=== PATIENT | male | born 1945 | race Caucasian/White ===

== ENCOUNTER 2023-03-02 16:35 | Inpatient (IN) | payer MEDICARE ==
[2023-03-02] MEDS ORDERED: HEPARIN SODIUM 1,000 UN/ML (10ML VL) IV PRN (16:58)
--- NOTE | 2023-03-02 17:02 | ED ---
General Adult HPI - General Chief complaint: Arrhythmia/Palpitations Stated complaint: Afib, RVR new onset Time Seen by Provider: 03/02/23 16:39 Source: patient Mode of arrival: EMS Limitations: no limitations - History of Present Illness Initial comments: Dictation was produced using [employer] dictation software. please excuse any grammatical, word or spelling errors. Chief Complaint: 78-year-old male presents to the emergency department for A. 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 fib. He presented to his primary. initially were he was found have a tachycardic heart rate. EKG was sent to the ER for suspicion of SVT. He was at the emergency department diagnosed with A. fib RVR he was given adenosine started Cardizem and heparin. Patient states he initially presented to his primary care doctor for worsening weakness and weight loss. Patient denies any chest pain or shortness of breath or lower extremities swelling or pain. The ROS documented in this emergency department record has been reviewed and confirmed by me. Those systems with pertinent positive or negative responses have been documented in the HPI. All other systems are other negative and/or noncontributory. - Related Data Allergies Allergy/AdvReac Type Severity Reaction Status Date / Time aspirin Allergy Rash/Hives Verified 03/02/23 16:51 ibuprofen Allergy Rash/Hives Verified 03/02/23 16:51 Review of Systems ROS Statement: Those systems with pertinent positive or pertinent negative responses have been documented in the HPI. ROS Other: All systems not noted in ROS Statement are negative. Past Medical History Additional Past Medical History / Comment(s): Atrail deptal defect, atherosclerosis, CAD, GERD, Gout, PVD, Past Surgical History: Appendectomy, Heart Catheterization With Stent, Hernia Repair, Orthopedic Surgery Additional Past Surgical History / Comment(s): AAA repair, back surgery, knee replacement, Past Psychological History: No Psychological Hx Reported Smoking Status: Former smoker Past Alcohol Use History: Occasional Past Drug Use History: None Reported General Exam - General Exam Comments Initial Comments: PHYSICAL EXAM: General Impression: Alert and oriented x3, not in acute distress HEENT: Normocephalic atraumatic, extra-ocular movements intact, pupils equal and reactive to light bilaterally, mucous membranes moist. 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 Overall this EKG is nonspecific Medical Decision Making - Medical Decision Making Was pt. sent in by a medical professional or institution (, PA, SURGEON PARTNER, urgent care, hospital, or long-term...) When possible be specific @ -From outside hospital emergency room Did you speak to anyone other than the patient for history (EMS, parent, family, police, friend...)? What history was obtained from this source @ -No Did you review nursing and triage notes (agree or disagree)? Why? @ -I reviewed and agree with nursing and triage notes Were old charts reviewed (outside hosp., previous admission, EMS record, old EKG, old radiological studies, urgent care reports/EKG's, long-term records)? Report findings @ -ER records from outside hospital emergency room reviewed Differential Diagnosis (chest pain, altered mental status, abdominal pain women, abdominal pain men, vaginal bleeding, musculoskeletal, weakness, fever, dyspnea, syncope, headache, dizziness, GI bleed, back pain, seizure, CVA, palpatations, mental health)? @ - Differential Palpitations: Ventricular arrhythmias, atrial arrhythmias, myocardial infarction, anemia, thyrotoxicosis, electrolyte imbalance, hypokalemia, pulmonary embolism, pulmonary disease, drugs, alcohol, anxiety, stress.... This is not meant to be an all-inclusive list. EKG interpreted by me (3pts min.). @ -see above X-rays interpreted by me (1pt min.). @ -None done CT interpreted by me (1pt min.). @ -None done U/S interpreted by me (1pt. min.). @ -None done What testing was considered but not performed or refused? (CT, X-rays, U/S, labs)? Why? @ -None What meds were considered but not given or refused? Why? @ -None Did you discuss the management of the patient with other professionals (professionals i.e. , PA, SURGEON PARTNER, lab, RT, psych nurse, older adult social work specialist, sports marketing specialist, teacher, medical officer psychiatry, oil field caser)? Give summary @ -Case discussed with hospitalist for admission Was smoking cessation discussed for >3mins.? @ -No Was critical care preformed (if so, how long)? @ -No Were there social determinants of health that impacted care today? How? (Homelessness, low income, unemployed, alcoholism, drug addiction, transportation, low edu. Level, literacy, decrease access to med. care, detention, rehab)? @ -No Was there de-escalation of care discussed even if they declined (Discuss DNR or withdrawal of care, Hospice)? DNR status @ -No What co-morbidities impacted this encounter? (DM, HTN, Smoking, COPD, CAD, Cancer, CVA, ARF, Chemo, Hep., AIDS, mental health diagnosis, sleep apnea, morbid obesity)? @ -None Was patient admitted / discharged? Hospital course, mention meds given and route, prescriptions, significant lab abnormalities, going to OR and other pertinent info. @ -No transferred from outside hospital emergency department for new onset A. fib. Patient is transferred with heparin and Cardizem. Vital signs upon arrival shows heart rate of 1:15, rest of vital signs within acceptable limits. Patient is well-appearing at bedside in no acute distress. Patient will be admitted to [facility] with consultation to cardiology. Undiagnosed new problem with uncertain prognosis? @ -No Drug Therapy requiring intensive monitoring for toxicity (Heparin, Nitro, Insulin, Cardizem)? @ -No Were any procedures done? @ -No Diagnosis/symptom? Acute, or Chronic, or Acute on Chronic? Uncomplicated (without systemic symptoms) or Complicated (systemic symptoms)? @ -New-onset A. fib Side effects of treatment? @ -No Exacerbation, Progression, or Severe Exacerbation? @ -No Poses a threat to life or bodily function? How? (Chest pain, USA, CA, pneumonia, PE, COPD, DKA, ARF, appy, cholecystitis, CVA, Diverticulitis, Homicidal, Suicidal, threat to staff... and all critical care pts) @ -yes Disposition Clinical Impression: New onset a-fib Disposition: ADMITTED IP TO THIS HOSP Condition: Fair Referrals: Jose G Courtney MD [Primary Care Provider] - 1-2 days Decision Time: 17:58
[2023-03-02] MEDS: HEPARIN SOD,PORK IN 0.45% NACL 25,000 UNIT in 0.45% NACL 1 250ML.BAG IV SCH (17:10)
[2023-03-02] MEDS: DILTIAZEM 125 MG in SODIUM CHLORIDE 0.9% 100 ML IV SCH (17:11)
[2023-03-02] MEDS ORDERED: NALOXONE 0.4 MG/ML 1 ML VIAL IV PRN (17:54)
[2023-03-02] MEDS: SODIUM CHLORIDE 0.9% 1,000 ML IV SCH (18:48)
[2023-03-03] MEDS ORDERED: ATORVASTATIN 80 MG TAB PO STA (05:08)
--- NOTE | 2023-03-03 05:09 | P.HPIM ---
History of Present Illness H&P Date: 03/02/23 Patient is a 78-year-old male with a PMH of BPH, CAD, GERD, hyperlipidemia, peripheral vascular disease, AAA status post repair, and ASD who was sent into the emergency room from [facility] where the patient initially presented with complaints of shortness of breath and lightheadedness. The patient reports that he had not been feeling well for several weeks and had little energy to perform his ADLs. He reports exertional dyspnea without orthopnea or PND. He denies experiencing chest discomfort, nausea, vomiting, diaphoresis, lower chronic swelling, lower extremity pain. The patient underwent an extensive evaluation at the [facility] which was all reviewed. EKG revealed A. fib with RVR at 129 bpm and subsequently repeat EKG also showed A. fib with RVR at 118 bpm. , Chest x-ray was unremarkable. The patient's laboratory evaluation was remarkable for troponin I 0.340, hemoglobin 10.9, platelet, and 65, sodium 141, potassium 3.1, chloride 106, BUN 24, creatinine 0.90, calcium 8.7, AST 52, ALT 28, total bilirubin 1.20, and magnesium 1.9. Repeat laboratory evaluation at our facility revealed a troponin of 0.371. ED documentation reviewed and case discussed with ED provider. Review of systems: Pertinent positives and negatives as discussed in HPI, a complete review of systems was performed and all other systems are negative. Physical examination: Vital signs reviewed General: non toxic, no distress, appears at stated age, normal weight Derm: no unusual rashes/lesions, warm Head: atraumatic, normocephalic, symmetric Eyes: EOMI, no lid lag, anicteric sclera, pupils equal round reactive to light ENT: Nose and ears atraumatic Neck: No cervical lymphadenopathy, trachea midline, supple Mouth: no lip lesion, mucus membranes moist Cardiovascular: S1S2 reg, no murmur, positive dorsalis pedis pulse bilateral, no edema Lungs: CTA bilateral, no rhonchi, no rales, no accessory muscle use Abdominal: soft, nontender to palpation, no guarding Ext: muscle strength 5 out of 5 in all 4 extremities grossly, no gross muscle atrophy, no contractures, Neuro: CN II-XI grossly intact, no gross focal neuro deficits Psych: Alert, oriented, appropriate affect Assessment: A. fib with RVR Non-ST elevation [place] Hypokalemia Chronic conditions: Hyperlipidemia, PVD, AAA, ASD, GERD Imaging: The patient underwent an extensive evaluation at the [facility] which was all reviewed. EKG revealed A. fib with RVR at 129 bpm and subsequently repeat EKG also showed A. fib with RVR at 118 bpm. , Chest x-ray was unremarkable Data Review: The patient's laboratory evaluation was remarkable for troponin I 0.340, hemoglobin 10.9, platelet, and 65, sodium 141, potassium 3.1, chloride 106, BUN 24, creatinine 0.90, calcium 8.7, AST 52, ALT 28, total bilirubin 1.20, and magnesium 1.9. Repeat laboratory evaluation at our facility revealed a troponin of 0.371. Plan: Continue heparin infusion with monitoring APTT levels Continue Cardizem infusion Cardiac monitoring Trend troponin Cardiology consulted Obtain Echocardiogram Replace potassium and monitor Resume home medications PT consult DVT propaylaxis: Heparin infusion The patient is admitted with an anticipated greater than 2 midnight stay for evaluation of afib CODE STATUS: Full Code Discussed with: Patient Anticipated discharge place: Home Past Medical History Additional Past Medical History / Comment(s): Atrail septal defect, atherosclerosis, CAD, GERD, Gout, PVD, History of Any Multi-Drug Resistant Organisms: None Reported Past Surgical History: Appendectomy, Heart Catheterization With Stent, Hernia Repair, Orthopedic Surgery Additional Past Surgical History / Comment(s): AAA repair, back surgery,L knee replacement, Date of Last Stent Placement:: n/a Past Psychological History: No Psychological Hx Reported Smoking Status: Former smoker Past Alcohol Use History: Occasional Past Drug Use History: None Reported Medications and Allergies Home Medications Medication Instructions Recorded Confirmed Type Clopidogrel [Plavix] 75 mg PO HS 03/02/23 03/02/23 History Dutasteride [Avodart] 0.5 mg PO HS 03/02/23 03/02/23 History Tamsulosin HCl [Flomax] 0.4 mg PO BID 03/02/23 03/02/23 History allopurinoL [Zyloprim] 300 mg PO HS 03/02/23 03/02/23 History Allergies Allergy/AdvReac Type Severity Reaction Status Date / Time aspirin Allergy Rash/Hives Verified 03/02/23 18:02 ibuprofen Allergy Rash/Hives Verified 03/02/23 18:02 Physical Exam Vitals: Vital Signs Temp Pulse Pulse Resp BP BP Pulse Ox 03/02/23 20:59 97.6 F 100 18 141/88 94 L 03/02/23 19:54 97.6 F 100 18 141/88 94 L 03/02/23 18:47 98 18 138/99 96 03/02/23 17:28 113 H 18 142/120 96 03/02/23 16:54 135 H 03/02/23 16:42 97.9 F 115 H 18 131/91 96 Intake and Output 03/02/23 03/02/23 03/03/23 14:59 22:59 06:59 Other: Voiding Method Toilet Weight 77.111 kg Results Labs: Abnormal Lab Results - Last 24 Hours (Table) 03/02/23 Range/Units 17:19 Troponin I 0.371 H* (0.000-0.034) ng/mL Thrombosis Risk Factor Assmnt - Choose All That Apply Any of the Below Risk Factors Present?: No Other Risk Factors: Yes Each Risk Factor Represents 3 Points: Age 75 years or older Other congenital or acquired thrombophilia - If yes, enter type in comment: No Thrombosis Risk Factor Assessment Total Risk Factor Score: 3 Thrombosis Risk Factor Assessment Level: Moderate Risk
[2023-03-03 05:56] LABS: Anisocytosis Slight; HCT 35.8 % (39.0-53.0); HGB 11.2 gm/dL (13.0-17.5); Hypochromasia Marked; MCH 28.4 pg (25.0-35.0); MCHC 31.2 g/dL (31.0-37.0); Mean Platelet Volume 10.4; Platelet Count 150 k/uL (150-450); RBC 3.93 m/uL (4.30-5.90); RDW 17.4 % (11.5-15.5)
[2023-03-03 06:09] LABS: African American GFR (CKD) >90 (>60 ml/min/1.73 sqM); Anion Gap 8 mmol/L; Blood Urea Nitrogen 24 mg/dL (9-20); Calcium 8.6 mg/dL (8.4-10.2); Carbon Dioxide 23 mmol/L (22-30); Chloride 108 mmol/L (98-107); Glucose 100 mg/dL (74-99); Non-African American GFR(CKD) 80 (>60 ml/min/1.73 sqM); Potassium 3.5 mmol/L (3.5-5.1); Sodium 139 mmol/L (137-145)
[2023-03-03] MEDS: SODIUM CHLORIDE 0.9% 1,000 ML IV SCH (10:18)
[2023-03-03] MEDS: METOPROLOL TARTRATE 50 MG TAB PO SCH ×2 (10:18→20:20)
[2023-03-03] MEDS ORDERED: HEPARIN SODIUM 1,000 UN/ML (10ML VL) IV PRN (10:25)
--- NOTE | 2023-03-03 11:16 | P.PN ---
Subjective Progress Note Date: 03/03/23 Hospital Course: 78-year-old male with a PMH of BPH, CAD, GERD, hyperlipidemia, peripheral vascular disease, AAA status post repair, and ASD who was sent into the emergency room from [facility] where the patient initially presented with complaints of shortness of breath and lightheadedness. The patient underwent an extensive evaluation at the [facility] which was all reviewed. EKG revealed A. fib with RVR at 129 bpm and subsequently repeat EKG also showed A. fib with RVR at 118 bpm. , Chest x-ray was unremarkable. The patient's laboratory evaluation was remarkable for troponin I 0.340, hemoglobin 10.9, platelet, and 65, sodium 141, potassium 3.1, chloride 106, BUN 24, creatinine 0.90, calcium 8.7, AST 52, ALT 28, total bilirubin 1.20, and magnesium 1.9. Repeat laboratory evaluation at our facility revealed a troponin of 0.371. Patient admitted for atrial fibrillation with RVR and non-ST elevation [place]. Cardiology consulted. Subjective: Patient seen and examined at bedside. No acute events overnight. Denies any further chest pain or palpitations. Pertinent positives and negatives as discussed above, a complete review of systems was performed and all other systems are negative. Vitals Signs Reviewed. General: nontoxic, no distress, appears at stated age Derm: warm, dry Head: atraumatic, normocephalic, symmetric Eyes: EOMI, no lid lag, anicteric sclera Mouth: no lip lesion, mucus membranes moist Cardiovascular: S1S2 irregular tachycardic, no murmur Lungs: CTA bilateral, no rhonchi, no rales , no accessory muscle use Abdominal: soft, nontender to palpation, no guarding, no appreciable organomegaly Ext: no gross muscle atrophy, no edema, no contractures Neuro: CN II-XI grossly intact, no focal neuro deficits Psych: Alert, oriented, appropriate affect Data Reviewed Today: Pertinent Labs: Hemoglobin 11.2, APTT 38.5, creatinine 0.9, potassium 3.5, troponin 0.366, TSH 1.3, respiratory viral panel negative. Imaging: No new imaging Assessment and Plan: Patient needs close monitoring, prognosis is guarded. Active: Atrial fibrillation with RVR Non-ST elevation [place], likely type II -Patient is currently on Cardizem drip, titrate off -Also on heparin drip, monitor for bleeding, monitor APTT, and a CBC -Also started on metoprolol 50 twice a day per cardiology -Continue Plavix 75 mg, also started on atorvastatin 80 mg -Repeat BMP and magnesium tomorrow -Continue telemetry -Echocardiogram pending Debility - PT consulted Resolved: Hypokalemia Chronic: Dyslipidemia CAD BPH examined. PAD AAA status post repair Gout DVT ppx: Heparin drip Code status: Full code Anticipated discharge place: Pending clinical course Anticipated discharge time: Pending clinical course Objective - Vital Signs Vital signs: Vital Signs Temp 97.8 F 03/03/23 08:00 Pulse 115 H 03/03/23 08:00 Resp 18 03/03/23 08:00 BP 171/90 03/03/23 08:00 Pulse Ox 95 03/03/23 08:00 FiO2 Intake & Output 03/02/23 03/03/23 03/03/23 18:59 06:59 18:59 Intake Total 85.59 89.837 Output Total 550 Balance -464.41 89.837 Weight 77.111 kg 77.111 kg Intake: Intake, IV Titration 85.59 89.837 Amount Heparin Sod,Pork in 0.45% 85.59 89.837 NaCl 25,000 unit In 0.45 % NaCl 1 250ml.bag @ 12 UNITS/KG/HR 9.253 mls/hr IV .Q24H [facility] Rx#: [id number] Output: Urine 550 Other: Voiding Method Toilet Toilet - Labs CBC & Chem 7: 03/03/23 05:35 03/03/23 05:35 Labs: Abnormal Lab Results - Last 24 Hours (Table) 03/02/23 03/02/23 03/03/23 Range/Units 17:19 23:02 05:35 RBC (4.30-5.90) m/uL Hgb (13.0-17.5) gm/dL Hct (39.0-53.0) % RDW (11.5-15.5) % APTT 33.5 H 38.5 H (22.0-30.0) sec Chloride (98-107) mmol/L BUN (9-20) mg/dL Glucose (74-99) mg/dL Troponin I 0.371 H* (0.000-0.034) ng/mL 03/03/23 03/03/23 03/03/23 Range/Units 05:35 05:35 05:35 RBC 3.93 L (4.30-5.90) m/uL Hgb 11.2 L (13.0-17.5) gm/dL Hct 35.8 L (39.0-53.0) % RDW 17.4 H (11.5-15.5) % APTT (22.0-30.0) sec Chloride 108 H (98-107) mmol/L BUN 24 H (9-20) mg/dL Glucose 100 H (74-99) mg/dL Troponin I 0.366 H* (0.000-0.034) ng/mL
--- NOTE | 2023-03-03 12:11 | CA ---
Transthoracic Echo Report Name: Calos Ramirez Age: 78 Gender: M : 1945 Exam Date: 03/03/2023 09:21 Exam Location: [place] [facility] Ht (in): 70 Wt (lb): 170 Ordering Physician: Cipriano Galdamez MD Attending/Referring Phys: Wildlife Enforcement Major Misha Ashraf Procedure CPT: Indications: afib Cardiac Hx: Technical Quality: Fair Contrast 1: Total Dose (mL): Contrast 2: Total Dose (mL): MEASUREMENTS (Male / Female) Normal Values 2D ECHO LV Diastolic Diameter PLAX 4.6 cm 4.2 - 5.9 / 3.9 - 5.3 cm LV Systolic Diameter PLAX 3.6 cm IVS Diastolic Thickness 1.9 cm 0.6 - 1.0 / 0.6 - 0.9 cm LVPW Diastolic Thickness 1.5 cm 0.6 - 1.0 / 0.6 - 0.9 cm LV Relative Wall Thickness 0.8 RV Internal Dim ED PLAX 3.4 cm LVOT Diameter 2.0 cm Aortic Root Diameter 3.3 cm LA Systolic Diameter LX 3.9 cm 3.0 - 4.0 / 2.7 - 3.8 cm LV Diastolic Volume MOD BP 98.8 cm??? 67 - 155 / 56 - 104 cm??? LV Systolic Volume MOD BP 59.1 cm??? - 58 / 19 - 49 cm??? LV Ejection Fraction MOD BP 40.1 % >= 55 % LV Cardiac Index MOD BP 1195.1 cm???/min???m??? LV Diastolic Volume MOD 4C 87.5 cm??? LV Systolic Volume MOD 4C 47.5 cm??? LV Ejection Fraction MOD 4C 45.7 % LV Cardiac Index MOD 4C 1203.4 cm???/min???m??? LV Diastolic Length 4C 8.1 cm LV Systolic Length 4C 7.5 cm LV Diastolic Volume MOD 2C 109.9 cm??? LV Systolic Volume MOD 2C 72.0 cm??? LV Ejection Fraction MOD 2C 34.5 % LV Cardiac Index MOD 2C 1141.7 cm???/min???m??? LV Diastolic Length 2C 8.2 cm LV Systolic Length 2C 7.7 cm LA Volume 90.0 cm??? 18 - 58 / 22 - 52 cm??? LA Volume Index 46.0 cm???/m??? 16 - 28 cm???/m??? Ascending Aorta Diameter 3.9 cm DOPPLER AV Peak Velocity 106.8 cm/s AV Peak Gradient 4.6 mmHg AV Mean Velocity 46.8 cm/s AV Mean Gradient 1.0 mmHg AV Velocity Time Integral 11.2 cm MV Peak Velocity 145.8 cm/s MV Peak Gradient 8.5 mmHg MV Mean Velocity 60.5 cm/s MV Mean Gradient 2.1 mmHg MV Velocity Time Integral 23.9 cm MR Peak Velocity 499.0 cm/s MR Peak Gradient 99.6 mmHg MV E' Velocity 4.0 cm/s TR Peak Velocity 273.5 cm/s TR Peak Gradient 29.9 mmHg Right Ventricular Systolic Press 34.9 mmHg PV Peak Velocity 79.2 cm/s PV Peak Gradient 2.5 mmHg FINDINGS Left Ventricle Severely increased septal wall thickness. Mildly increased left ventricular systolic volume. Moderately decreased left ventricular ejection fraction. Left ventricular ejection fraction is estimated at 40 %. Right Ventricle Normal right ventricular size. RVSP= 35mmHg. Right Atrium Moderate right atrial dilatation. RA area = 28cm2 Left Atrium Severely increased left atrial volume. Mildly increased left atrial area. Mitral Valve Structurally normal mitral valve. Moderate eccentric MR. Aortic Valve Trileaflet aortic valve. Mild to moderate calcification/sclerosis. Trace AI. Tricuspid Valve Structurally normal tricuspid valve. Moderate TR. Pulmonic Valve Structurally normal pulmonic valve. Mild to moderate PI. Pericardium Small global pericardial effusion. Aorta Normal size aortic root. Ascending AO godfrey. =3.9cm CONCLUSIONS Normal LV size with a mild global decrease in contractility estimated ejection fraction of about 40%. Enlarged atria. Mitral annular calcification with moderate mitral regurgitation. Aortic valve sclerosis with mild aortic insufficiency. Small pericardial effusion globally Previewed by: Dr. Yuki Nieves MD (Electronically Signed) Final Date: 03 March 2023 12:10
--- NOTE | 2023-03-03 13:12 | P.CRDCN ---
History of Present Illness Consult date: 03/03/23 Consult reason: atrial fibrillation (new onset) History of present illness: History of present illness: This is an 78-year-old male with past medical history of atrial septal defect, peripheral vascular disease status post AAA repair, coronary artery disease with stent, tobacco use and dependence. Patient states he quit smoking 1 month ago and has no alcohol intake. We have been asked to evaluate the patient for new onset atrial fibrillation. Patient states that he initially went to his PCP for weakness and weight loss he was then sent to the local hospital for evaluation and transfer to [facility] for A. fib new onset. Patient is status post adenosine and subsequently Cardizem drip and heparin drip. Patient is seen today in the emergency center waiting for a bed on the cardiac stepdown unit. Patient also states that he has shortness of breath with minimal activity and a chronic cough. He has lower extremity edema. No chest pain. EKG atrial fibrillation with PVCs Echocardiogram reveals EF of 40%. Moderate mitral regurgitation. Aortic valve sclerosis with mild aortic insufficiency. WBC 6, hemoglobin 11.3, platelet count 150. Sodium 139, potassium 3.5, BUN 24 and creatinine 0.9. Troponin 0.371 and 0.366. Home cardiac medications: Plavix 75 mg daily, Avodart 0.5 mg at bedtime. Review Of Systems: At the time of my exam: CONSTITUTIONAL: Denies fever or chills. CARDIOVASCULAR: Denies chest pain, Denies shortness of breath, no orthopnea, PND or palpitations. RESPIRATORY: + cough. GASTROINTESTINAL: Denies abdominal pain, diarrhea, constipation, nausea or vomiting. MUSCULOSKELETAL: Denies myalgias. NEUROLOGIC: Denies numbness, tingling or weakness. ENDOCRINE: Denies fatigue, weight change, polydipsia or polyurina. GENITOURINARY: Denies burning, hematuria or urgency with micturation. HEMATOLOGIC: Denies history of anemia or bleeding. Physical examination: Gen: This is an 78-year-old male in no acute distress VS: reviewed HEENT: Head is atraumatic, normocephalic. Pupils equal, round. Sclerae is anicteric. NECK: Supple. + JVD. LUNGS: Clear to auscultation. No wheezes or rhonchi. No intercostal retractio ns. HEART: Irregular rate and rhythm. Systolic murmur. ABDOMEN: Soft No tenderness. EXTREMITIES: 1+ pedal edema. No calf tenderness. NEUROLOGICAL: Patient is awake, alert and oriented x3. Assessment: New onset paroxysmal atrial fibrillation with RVR Weakness and weight loss Hypertension Elevated troponin, acute coronary syndrome ruled out Tobacco use and dependence quit smoking 1 month ago Plan: Decrease Cardizem drip to 2.5 mg/h Start patient on Lopressor 50 mg twice daily Continue heparin drip for 24 hours Further recommendations to follow based upon clinical course Thank you kindly for this consultation. Nurse practitioner note has been reviewed, I agree with documented findings and plan of care. Patient was seen and examined. Past Medical History Additional Past Medical History / Comment(s): Atrail septal defect, atherosclerosis, CAD, GERD, Gout, PVD, History of Any Multi-Drug Resistant Organisms: None Reported Past Surgical History: Appendectomy, Heart Catheterization With Stent, Hernia Repair, Orthopedic Surgery Additional Past Surgical History / Comment(s): AAA repair, back surgery,L knee replacement, Date of Last Stent Placement:: n/a Past Psychological History: No Psychological Hx Reported Smoking Status: Former smoker Past Alcohol Use History: Occasional Past Drug Use History: None Reported Medications and Allergies Home Medications Medication Instructions Recorded Confirmed Type Clopidogrel [Plavix] 75 mg PO HS 03/02/23 03/02/23 History Dutasteride [Avodart] 0.5 mg PO HS 03/02/23 03/02/23 History Tamsulosin HCl [Flomax] 0.4 mg PO BID 03/02/23 03/02/23 History allopurinoL [Zyloprim] 300 mg PO HS 03/02/23 03/02/23 History Allergies Allergy/AdvReac Type Severity Reaction Status Date / Time aspirin Allergy Rash/Hives Verified 03/02/23 18:02 ibuprofen Allergy Rash/Hives Verified 03/02/23 18:02 Physical Exam Vitals: Vital Signs Temp Pulse Pulse Resp BP BP Pulse Ox 03/03/23 04:00 96.7 F L 98 20 149/90 100 03/03/23 00:00 97.8 F 65 18 108/65 95 03/02/23 20:59 97.6 F 100 18 141/88 94 L 03/02/23 19:54 97.6 F 100 18 141/88 94 L 03/02/23 18:47 98 18 138/99 96 03/02/23 17:28 113 H 18 142/120 96 03/02/23 16:54 135 H 03/02/23 16:42 97.9 F 115 H 18 131/91 96 Intake and Output 03/02/23 03/03/23 03/03/23 22:59 06:59 14:59 Intake Total 85.59 Output Total 550 Balance -464.41 Intake: Intake, IV Titration 85.59 Amount Heparin Sod,Pork in 0.45% 85.59 NaCl 25,000 unit In 0.45 % NaCl 1 250ml.bag @ 12 UNITS/KG/HR 9.253 mls/hr IV .Q24H [facility] Rx#: [id number] Output: Urine 550 Other: Voiding Method Toilet Toilet Weight 77.111 kg Results 03/03/23 05:35 03/03/23 05:35 Cardiac Enzymes 03/02/23 03/03/23 Range/Units 17:19 05:35 Troponin I 0.371 H* 0.366 H* (0.000-0.034) ng/mL Coagulation 03/02/23 03/03/23 Range/Units 23:02 05:35 APTT 33.5 H 38.5 H (22.0-30.0) sec CBC 03/03/23 Range/Units 05:35 WBC 6.0 (3.8-10.6) k/uL RBC 3.93 L (4.30-5.90) m/uL Hgb 11.2 L (13.0-17.5) gm/dL Hct 35.8 L (39.0-53.0) % Plt Count 150 (150-450) k/uL Comprehensive Metabolic Panel 03/03/23 Range/Units 05:35 Sodium 139 (137-145) mmol/L Potassium 3.5 (3.5-5.1) mmol/L Chloride 108 H (98-107) mmol/L Carbon Dioxide 23 (22-30) mmol/L BUN 24 H (9-20) mg/dL Creatinine 0.90 (0.66-1.25) mg/dL Glucose 100 H (74-99) mg/dL Calcium 8.6 (8.4-10.2) mg/dL Current Medications Generic Name Dose Route Start Last Admin Trade Name Freq PRN Reason Stop Dose Admin Atorvastatin Calcium 80 mg 03/03/23 21:00 Atorvastatin 80 Mg Tab PO HS [facility] Heparin Sodium (Porcine) 0 unit 03/02/23 16:58 Heparin Sodium 1,000 Un/Ml (10ml Vl) IV PER PROTOCOL PRN Low PTT Protocol Diltiazem HCl 125 mg/ Sodium 125 mls @ 5 mls/hr 03/02/23 17:30 03/02/23 17:11 Chloride IV 5 mg/hr .Q24H [facility] 5 mls/hr Administration 5 MG/HR Heparin Sodium/Sodium Chloride 250 mls @ 9.253 mls/hr 03/02/23 17:00 03/03/23 02:25 25,000 unit/ Sodium Chloride IV 15 units/kg/hr .Q24H [facility] 11.567 mls/hr Titration Protocol 12 UNITS/KG/HR Sodium Chloride 1,000 mls @ 75 mls/hr 03/02/23 18:00 03/02/23 18:48 Saline 0.9% IV 75 mls/hr .[id number] [facility] Administration Naloxone HCl 0.2 mg 03/02/23 17:54 Naloxone 0.4 Mg/Ml 1 Ml Vial IV Q2M PRN Opioid Reversal Intake and Output 03/02/23 03/03/23 03/03/23 22:59 06:59 14:59 Intake Total 85.59 Output Total 550 Balance -464.41 Intake: Intake, IV Titration 85.59 Amount Heparin Sod,Pork in 0.45% 85.59 NaCl 25,000 unit In 0.45 % NaCl 1 250ml.bag @ 12 UNITS/KG/HR 9.253 mls/hr IV .Q24H [facility] Rx#: [id number] Output: Urine 550 Other: Voiding Method Toilet Toilet Weight 77.111 kg 03/03/23 05:35 03/03/23 05:35
[2023-03-03] MEDS ORDERED: POTASSIUM CHLORIDE ER 20 MEQ TAB.ER PO STA (13:40)
[2023-03-03] MEDS: DILTIAZEM 125 MG in SODIUM CHLORIDE 0.9% 100 ML IV SCH (14:37)
[2023-03-03] MEDS: HEPARIN SOD,PORK IN 0.45% NACL 25,000 UNIT in 0.45% NACL 1 250ML.BAG IV SCH (16:33)
[2023-03-03] MEDS: CLOPIDOGREL 75 MG TAB PO SCH (20:20)
[2023-03-03] MEDS: ATORVASTATIN 80 MG TAB PO SCH (20:20)
[2023-03-03] MEDS: FINASTERIDE 5 MG TAB PO SCH (20:20)
[2023-03-03] MEDS: allopurinoL 300 MG TAB PO SCH (20:20)
[2023-03-03] MEDS: TAMSULOSIN 0.4 MG CAP.ER.24H PO SCH (20:20)
[2023-03-04] MEDS: SODIUM CHLORIDE 0.9% 1,000 ML IV SCH ×2 (06:00→20:27)
[2023-03-04] MEDS: TAMSULOSIN 0.4 MG CAP.ER.24H PO SCH ×2 (08:44→20:29)
[2023-03-04] MEDS: METOPROLOL TARTRATE 50 MG TAB PO SCH (08:44)
[2023-03-04 08:54] LABS: Anisocytosis Slight; Basophils % (A) 0 %; Eosinophils % (A) 1 %; HCT 34.9 % (39.0-53.0); HGB 10.6 gm/dL (13.0-17.5); Hypochromasia Marked; Lymphocytes # (A) 0.7 k/uL (1.0-4.8); Lymphocytes % (A) 15 %; MCH 27.8 pg (25.0-35.0); MCHC 30.4 g/dL (31.0-37.0); MCV 91.5 fL (80.0-100.0); Mean Platelet Volume 10.9; Monocytes # (A) 0.2 k/uL (0-1.0); Monocytes % (A) 5 %; Neutrophils # (A) 3.6 k/uL (1.3-7.7); Neutrophils % (A) 77 %; Platelet Count 145 k/uL (150-450); RBC 3.81 m/uL (4.30-5.90); RDW 17.6 % (11.5-15.5); WBC 4.7 k/uL (3.8-10.6)
[2023-03-04 09:16] LABS: African American GFR (CKD) 77 (>60 ml/min/1.73 sqM); Anion Gap 8 mmol/L; Blood Urea Nitrogen 25 mg/dL (9-20); Calcium 8.9 mg/dL (8.4-10.2); Carbon Dioxide 27 mmol/L (22-30); Chloride 108 mmol/L (98-107); Glucose 128 mg/dL (74-99); Magnesium 1.8 mg/dL (1.6-2.3); Non-African American GFR(CKD) 66 (>60 ml/min/1.73 sqM); Potassium 3.9 mmol/L (3.5-5.1); Sodium 143 mmol/L (137-145)
[2023-03-04] MEDS ORDERED: METOPROLOL TARTRATE 25 MG TAB PO STA (09:23)
[2023-03-04] MEDS: LOSARTAN 25 MG TAB PO SCH (11:18)
--- NOTE | 2023-03-04 13:05 | P.PN ---
Subjective Progress Note Date: 03/04/23 Consult reason: atrial fibrillation (new onset) History of present illness: History of present illness: This is an 78-year-old male with past medical history of atrial septal defect, peripheral vascular disease status post AAA repair, coronary artery disease with stent, tobacco use and dependence. Patient states he quit smoking 1 month ago and has no alcohol intake. We have been asked to evaluate the patient for new onset atrial fibrillation. Patient states that he initially went to his PCP for weakness and weight loss he was then sent to the local hospital for evaluation and transfer to [facility] for A. fib new onset. Patient is status post adenosine and subsequently Cardizem drip and heparin drip. Patient is seen today in the emergency center waiting for a bed on the cardiac stepdown unit. Patient also states that he has shortness of breath with minimal activity and a chronic cough. He has lower extremity edema. No chest pain. EKG atrial fibrillation with PVCs Echocardiogram reveals EF of 40%. Moderate mitral regurgitation. Aortic valve sclerosis with mild aortic insufficiency. WBC 6, hemoglobin 11.3, platelet count 150. Sodium 139, potassium 3.5, BUN 24 and creatinine 0.9. Troponin 0.371 and 0.366. Home cardiac medications: Plavix 75 mg daily, Avodart 0.5 mg at bedtime. 03/04 Seen today on the cardiac stepdown unit. Telemetry is atrial fibrillation running around 107 bpm. Patient remains on Cardizem drip at 2.5 mg per hour and was started on Lopressor 50 mg twice daily yesterday. He is also maintained on heparin drip. Heart rate is in the 60s to 80s, blood pressure 134/88, pulse ox 98% on 2 L nasal cannula. Repeat blood work reveals hemoglobin 10.6, platelet count 145. BUN 25 creatinine 1.06. Potassium 3.9. Physical examination: Gen: This is an 78-year-old male in no acute distress VS: reviewed HEENT: Head is atraumatic, normocephalic. Pupils equal, round. Sclerae is anicteric. LUNGS: Clear to auscultation. No wheezes or rhonchi. No intercostal retractions. HEART: Irregular rate and rhythm. Systolic murmur. EXTREMITIES: 1+ pedal edema. No calf tenderness. Assessment: New onset paroxysmal atrial fibrillation with RVR Weakness and weight loss Hypertension Elevated troponin likely due to demand ischemia Smoking cessation 1 month ago Plan: Discontinue cardizem drip at 4 PM Increase Lopressor to 75 mg twice daily Add losartan 12.5 mg at noon for BP control Discontinue heparin drip and start patient on eliquis 5 mg twice daily Nurse practitioner note has been reviewed, I agree with documented findings and plan of care. Patient was seen and examined. Objective - Vital Signs Vital signs: Vital Signs Temp 97.8 F 03/03/23 20:19 Pulse 82 03/04/23 03:35 Resp 18 03/04/23 03:35 BP 150/84 03/04/23 03:35 Pulse Ox 94 L 03/04/23 03:35 FiO2 Intake & Output 03/03/23 03/04/23 03/04/23 18:59 06:59 18:59 Intake Total 751.577 180 Balance 751.577 180 Intake: Intake, IV Titration 271.577 Amount Diltiazem 125 mg In 107.167 Sodium Chloride 0.9% 100 ml @ 2.5 MG/HR 2.5 mls/hr IV .Q24H [facility] Rx#: [id number] Heparin Sod,Pork in 0.45% 164.410 NaCl 25,000 unit In 0.45 % NaCl 1 250ml.bag @ 12 UNITS/KG/HR 9.253 mls/hr IV .Q24H [facility] Rx#: [id number] Oral 480 180 Other: Voiding Method Toilet Toilet # Voids 0 1 # Bowel Movements 1 - Labs CBC & Chem 7: 03/04/23 08:29 03/04/23 08:29 Labs: Abnormal Lab Results - Last 24 Hours (Table) 03/03/23 03/04/23 03/04/23 Range/Units 17:09 08:29 08:29 RBC 3.81 L (4.30-5.90) m/uL Hgb 10.6 L (13.0-17.5) gm/dL Hct 34.9 L (39.0-53.0) % MCHC 30.4 L (31.0-37.0) g/dL RDW 17.6 H (11.5-15.5) % Plt Count 145 L (150-450) k/uL Lymphocytes # 0.7 L (1.0-4.8) k/uL APTT 55.6 H (22.0-30.0) sec Chloride 108 H (98-107) mmol/L BUN 25 H (9-20) mg/dL Glucose 128 H (74-99) mg/dL
--- NOTE | 2023-03-04 13:13 | P.PN ---
Subjective Progress Note Date: 03/04/23 Hospital Course: 78-year-old male with a PMH of BPH, CAD, GERD, hyperlipidemia, peripheral vascular disease, AAA status post repair, and ASD who was sent into the emergency room from [facility] where the patient initially presented with complaints of shortness of breath and lightheadedness. The patient underwent an extensive evaluation at the [facility] which was all reviewed. EKG revealed A. fib with RVR at 129 bpm and subsequently repeat EKG also showed A. fib with RVR at 118 bpm. , Chest x-ray was unremarkable. The patient's laboratory evaluation was remarkable for troponin I 0.340, hemoglobin 10.9, platelet, and 65, sodium 141, potassium 3.1, chloride 106, BUN 24, creatinine 0.90, calcium 8.7, AST 52, ALT 28, total bilirubin 1.20, and magnesium 1.9. Repeat laboratory evaluation at our facility revealed a troponin of 0.371. Patient admitted for atrial fibrillation with RVR and non-ST elevation DE. Cardiology consulted. LVEF 40%, small pericardial effusion, mild aortic regurgitation, moderate mitral regurgitation. Subjective: Patient seen and examined at bedside. No acute events overnight. Denies any further chest pain or palpitations. Pertinent positives and negatives as discussed above, a complete review of systems was performed and all other systems are negative. Vitals Signs Reviewed. General: nontoxic, no distress, appears at stated age Derm: warm, dry Head: atraumatic, normocephalic, symmetric Eyes: EOMI, no lid lag, anicteric sclera Mouth: no lip lesion, mucus membranes moist Cardiovascular: S1S2 irregular, no murmur Lungs: CTA bilateral, no rhonchi, no rales , no accessory muscle use Abdominal: soft, nontender to palpation, no guarding, no appreciable organomegaly Ext: no gross muscle atrophy, no edema, no contractures Neuro: CN II-XI grossly intact, no focal neuro deficits Psych: Alert, oriented, appropriate affect Data Reviewed Today: Pertinent Labs: Hemoglobin 10.6, platelet 145, potassium 3.9, creatinine 1.06, magnesium 1.8 Imaging: Echocardiogram report reviewed, shows LVEF 40%, small pericardial effusion, mild aortic regurgitation, moderate mitral regurgitation Assessment and Plan: Active: Atrial fibrillation with RVR Non-ST elevation DE, likely type II Systolic cardiomyopathy, 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 PAD AAA status post repair Gout DVT ppx: Eliquis Code status: Full code Anticipated discharge place: Pending clinical course Anticipated discharge time: Pending clinical course Objective - Vital Signs Vital signs: Vital Signs Temp 98.0 F 03/04/23 08:00 Pulse 72 03/04/23 11:27 Resp 22 03/04/23 11:27 BP 134/88 03/04/23 11:27 Pulse Ox 98 03/04/23 11:27 FiO2 Intake & Output 03/03/23 03/04/23 03/04/23 18:59 06:59 18:59 Intake Total 751.577 180 Balance 751.577 180 Intake: Intake, IV Titration 271.577 Amount Diltiazem 125 mg In 107.167 Sodium Chloride 0.9% 100 ml @ 2.5 MG/HR 2.5 mls/hr IV .Q24H [facility] Rx#: [id number] Heparin Sod,Pork in 0.45% 164.410 NaCl 25,000 unit In 0.45 % NaCl 1 250ml.bag @ 12 UNITS/KG/HR 9.253 mls/hr IV .Q24H [facility] Rx#: [id number] Oral 480 180 Other: Voiding Method Toilet Toilet Toilet # Voids 0 1 # Bowel Movements 1 - Labs CBC & Chem 7: 03/04/23 08:29 03/04/23 08:29 Labs: Abnormal Lab Results - Last 24 Hours (Table) 03/03/23 03/04/23 03/04/23 Range/Units 17:09 08:29 08:29 RBC 3.81 L (4.30-5.90) m/uL Hgb 10.6 L (13.0-17.5) gm/dL Hct 34.9 L (39.0-53.0) % MCHC 30.4 L (31.0-37.0) g/dL RDW 17.6 H (11.5-15.5) % Plt Count 145 L (150-450) k/uL Lymphocytes # 0.7 L (1.0-4.8) k/uL APTT 55.6 H (22.0-30.0) sec Chloride 108 H (98-107) mmol/L BUN 25 H (9-20) mg/dL Glucose 128 H (74-99) mg/dL
[2023-03-04] MEDS: APIXABAN 5 MG TAB PO SCH ×2 (13:50→20:29)
[2023-03-04 16:12] LABS: Chol/HDL Ratio 3.48 Ratio; LDL Cholesterol,Calculated 59.3 mg/dL (0.0-131.0); VLDL Calculation 14.84 mg/dL (5.00-40.00)
[2023-03-04] MEDS: METOPROLOL TARTRATE 25 MG TAB PO SCH (20:29)
[2023-03-04] MEDS: allopurinoL 300 MG TAB PO SCH (20:29)
[2023-03-04] MEDS: FINASTERIDE 5 MG TAB PO SCH (20:29)
[2023-03-04] MEDS: CLOPIDOGREL 75 MG TAB PO SCH (20:29)
[2023-03-04] MEDS: ATORVASTATIN 80 MG TAB PO SCH (20:29)
[2023-03-05] MEDS: SODIUM CHLORIDE 0.9% 1,000 ML IV SCH ×2 (00:40→08:28)
[2023-03-05] MEDS: TAMSULOSIN 0.4 MG CAP.ER.24H PO SCH ×2 (08:28→20:16)
[2023-03-05] MEDS: APIXABAN 5 MG TAB PO SCH ×2 (08:28→20:17)
[2023-03-05] MEDS: METOPROLOL TARTRATE 25 MG TAB PO SCH (08:28)
--- NOTE | 2023-03-05 10:32 | XR ---
EXAMINATION TYPE: XR chest 1V portable DATE OF EXAM: 03/05/2023 COMPARISON: None INDICATION: Short of breath TECHNIQUE: Single frontal view of the chest is obtained. FINDINGS: The heart size is normal. The pulmonary vasculature is normal. There is a right lower lobe consolidation with air bronchograms. Correlate for pneumonia. IMPRESSION: 1. Right lower lobe consolidation with air bronchograms. Correlate for pneumonia. Follow-up is recomm ended.
[2023-03-05] MEDS ORDERED: METOPROLOL TARTRATE 25 MG TAB PO STA (11:21)
[2023-03-05] MEDS: LOSARTAN 25 MG TAB PO SCH (11:26)
[2023-03-05 12:32] LABS: Anisocytosis Slight; Basophils % (A) 0 %; Eosinophils # (A) 0.1 k/uL (0-0.7); Eosinophils % (A) 1 %; HCT 37.5 % (39.0-53.0); HGB 11.5 gm/dL (13.0-17.5); Hypochromasia Marked; Lymphocytes # (A) 0.7 k/uL (1.0-4.8); Lymphocytes % (A) 14 %; MCH 28.2 pg (25.0-35.0); MCHC 30.8 g/dL (31.0-37.0); MCV 91.5 fL (80.0-100.0); Mean Platelet Volume 10.7; Monocytes # (A) 0.2 k/uL (0-1.0); Monocytes % (A) 5 %; Neutrophils # (A) 3.9 k/uL (1.3-7.7); Neutrophils % (A) 78 %; Platelet Count 157 k/uL (150-450); RDW 17.4 % (11.5-15.5); WBC 4.9 k/uL (3.8-10.6)
--- NOTE | 2023-03-05 12:52 | P.PN ---
Subjective Progress Note Date: 03/05/23 Hospital Course: 78-year-old male with a PMH of BPH, CAD, GERD, hyperlipidemia, peripheral vasc ular disease, AAA status post repair, and ASD who was sent into the emergency room from [facility] where the patient initially presented with complaints of shortness of breath and lightheadedness. The patient underwent an extensive evaluation at the [facility] which was all reviewed. EKG revealed A. fib with RVR at 129 bpm and subsequently repeat EKG also showed A. fib with RVR at 118 bpm. , Chest x-ray was unremarkable. The patient's laboratory evaluation was remarkable for troponin I 0.340, hemoglobin 10.9, platelet, and 65, sodium 141, potassium 3.1, chloride 106, BUN 24, creatinine 0.90, calcium 8.7, AST 52, ALT 28, total bilirubin 1.20, and magnesium 1.9. R epeat laboratory evaluation at our facility revealed a troponin of 0.371. Patient admitted for atrial fibrillation with RVR and non-ST elevation NV. Cardiology consulted. LVEF 40%, small pericardial effusion, mild aortic regurgitation, moderate mitral regurgitation. Transition off of IV Cardizem, and IV heparin to oral metoprolol and Eliquis. Respiratory function worsening. Chest x-ray repeated. Shows right lower lobe opacity. Started on IV antibiotics. Subjective: Patient seen and examined at bedside. No acute events overnight. Continues to come plana bowel worsening cough or shortness of breath Pertinent positives and negatives as discussed above, a complete review of systems was performed and all other systems are negative. Vitals Signs Reviewed. General: nontoxic, no distress, appears at stated age Derm: warm, dry Head: atraumatic, normocephalic, symmetric Eyes: EOMI, no lid lag, anicteric sclera Mouth: no lip lesion, mucus membranes moist Cardiovascular: S1S2 irregular, no murmur Lungs: Right Easler rales , no accessory muscle use Abdominal: soft, nontender to palpation, no guarding, no appreciable organomegaly Ext: no gross muscle atrophy, no edema, no contractures Neuro: CN II-XI grossly intact, no focal neuro deficits Psych: Alert, oriented, appropriate affect Data Reviewed Today: Pertinent Labs: CBC and BMP pending, will be reviewed when available Imaging: Chest x-ray independently interpreted, shows right lower lobe opacity Assessment and Plan: Patient needs close monitoring. Prognosis guarded. 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 PAD AAA status post repair Gout DVT ppx: Eliquis Code status: Full code Anticipated discharge place: Pending clinical course Anticipated discharge time: Pending clinical course Objective - Vital Signs Vital signs: Vital Signs Temp 97.5 F L 03/05/23 08:00 Pulse 81 03/05/23 11:42 Resp 18 03/05/23 11:42 BP 98/64 03/05/23 11:42 Pulse Ox 97 03/05/23 11:42 FiO2 Intake & Output 03/04/23 03/05/23 03/05/23 18:59 06:59 18:59 Intake Total 360 420 Balance 360 420 Weight 130 kg Intake: Oral 360 420 Other: Voiding Method Toilet Toilet Toilet # Voids 1 1 1 # Bowel Movements 1 1 1 - Labs CBC & Chem 7: 03/04/23 08:29 03/04/23 08:29 Labs: Abnormal Lab Results - Last 24 Hours (Table) 03/04/23 03/04/23 Range/Units 08:29 16:38 APTT 62.4 H (22.0-30.0) sec HDL Cholesterol 29.90 L (40.00-60.00) mg/dL
[2023-03-05 13:00] LABS: African American GFR (CKD) 73 (>60 ml/min/1.73 sqM); Anion Gap 9 mmol/L; Blood Urea Nitrogen 33 mg/dL (9-20); Carbon Dioxide 25 mmol/L (22-30); Chloride 107 mmol/L (98-107); Glucose 111 mg/dL (74-99); Non-African American GFR(CKD) 63 (>60 ml/min/1.73 sqM); Potassium 4.5 mmol/L (3.5-5.1); Sodium 141 mmol/L (137-145)
[2023-03-05] MEDS: AZITHROMYCIN 500 MG in SODIUM CHLORIDE 0.9% 250 ML IVPB SCH (13:34)
[2023-03-05] MEDS ORDERED: ACETAMINOPHEN TAB 325 MG TAB PO PRN (14:48)
--- NOTE | 2023-03-05 16:31 | P.PN ---
Subjective Progress Note Date: 03/05/23 Consult reason: atrial fibrillation (new onset) History of present illness: History of present illness: This is an 78-year-old male with past medical history of atrial septal defect, peripheral vascular disease status post AAA repair, coronary artery disease with stent, tobacco use and dependence. Patient states he quit smoking 1 month ago and has no alcohol intake. We have been asked to evaluate the patient for new onset atrial fibrillation. Patient states that he initially went to his PCP for weakness and weight loss he was then sent to the local hospital for evaluation and transfer to [facility] for A. fib new onset. Patient is status post adenosine and subsequently Cardizem drip and heparin drip. Patient is seen today in the emergency center waiting for a bed on the cardiac stepdown unit. Patient also states that he has shortness of breath with minimal activity and a chronic cough. He has lower extremity edema. No chest pain. EKG atrial fibrillation with PVCs Echocardiogram reveals EF of 40%. Moderate mitral regurgitation. Aortic valve sclerosis with mild aortic insufficiency. WBC 6, hemoglobin 11.3, platelet count 150. Sodium 139, potassium 3.5, BUN 24 and creatinine 0.9. Troponin 0.371 and 0.366. Home cardiac medications: Plavix 75 mg daily, Avodart 0.5 mg at bedtime. 03/04 Seen today on the cardiac stepdown unit. Telemetry is atrial fibrillation running around 107 bpm. Patient remains on Cardizem drip at 2.5 mg per hour and was started on Lopressor 50 mg twice daily yesterday. He is also maintained on heparin drip. Heart rate is in the 60s to 80s, blood pressure 134/88, pulse ox 98% on 2 L nasal cannula. Repeat blood work reveals hemoglobin 10.6, platelet count 145. BUN 25 creatinine 1.06. Potassium 3.9. 03/05 Telemetry is atrial fibrillation running between 76 and 110. Patient is currently maintained on Lopressor 75 mg twice daily and Cardizem drip was discontinued yesterday afternoon. Losartan was also added yesterday for blood pressure control. Physical examination: Gen: This is an 78-year-old male in no acute distress VS: reviewed HEENT: Head is atraumatic, normocephalic. Pupils equal, round. Sclerae is anicteric. LUNGS: Clear to auscultation. No wheezes or rhonchi. No intercostal ret ractions. HEART: Irregular rate and rhythm. Systolic murmur. EXTREMITIES: 1+ pedal edema. No calf tenderness. Assessment: New onset paroxysmal atrial fibrillation with RVR Weakness and weight loss Hypertension Elevated troponin likely due to demand ischemia Smoking cessation 1 month ago Plan: Increase Lopressor to 100 mg twice daily Add losartan 12.5 mg at noon for BP control Continue patient on eliquis 5 mg twice daily Nurse practitioner note has been reviewed, I agree with documented findings and plan of care. Patient was seen and examined. Objective - Vital Signs Vital signs: Vital Signs Temp 97.5 F L 03/05/23 08:00 Pulse 109 H 03/05/23 08:00 Resp 20 03/05/23 08:00 BP 108/74 03/05/23 08:00 Pulse Ox 95 03/05/23 08:00 FiO2 Intake & Output 03/04/23 03/05/23 03/05/23 18:59 06:59 18:59 Intake Total 360 180 Balance 360 180 Weight 130 kg Intake: Oral 360 180 Other: Voiding Method Toilet Toilet Toilet # Voids 1 1 1 # Bowel Movements 1 1 - Labs CBC & Chem 7: 03/05/23 12:23 03/05/23 12:23 Labs: Abnormal Lab Results - Last 24 Hours (Table) 03/04/23 03/04/23 Range/Units 08:29 16:38 APTT 62.4 H (22.0-30.0) sec HDL Cholesterol 29.90 L (40.00-60.00) mg/dL
[2023-03-05] MEDS: FINASTERIDE 5 MG TAB PO SCH (20:16)
[2023-03-05] MEDS: ATORVASTATIN 80 MG TAB PO SCH (20:17)
[2023-03-05] MEDS: CLOPIDOGREL 75 MG TAB PO SCH (20:17)
[2023-03-05] MEDS: METOPROLOL TARTRATE 50 MG TAB PO SCH (20:17)
[2023-03-05] MEDS: allopurinoL 300 MG TAB PO SCH (20:17)
[2023-03-05] MEDS ORDERED: HALOPERIDOL LACTATE 5 MG/ML 1 ML VIAL IM STA (23:13)
[2023-03-06] MEDS: SODIUM CHLORIDE 0.9% 1,000 ML IV SCH (06:37)
[2023-03-06] MEDS: TAMSULOSIN 0.4 MG CAP.ER.24H PO SCH ×2 (09:17→20:16)
[2023-03-06] MEDS: APIXABAN 5 MG TAB PO SCH ×2 (09:17→20:16)
[2023-03-06] MEDS: METOPROLOL TARTRATE 50 MG TAB PO SCH ×2 (09:18→20:17)
[2023-03-06] MEDS ORDERED: METOPROLOL TARTRATE 25 MG TAB PO STA (09:49)
--- NOTE | 2023-03-06 11:03 | P.PN ---
Subjective Progress Note Date: 03/06/23 Hospital Course: 78-year-old male with a PMH of BPH, CAD, GERD, hyperlipidemia, peripheral vasc ular disease, AAA status post repair, and ASD who was sent into the emergency room from [facility] where the patient initially presented with complaints of shortness of breath and lightheadedness. The patient underwent an extensive evaluation at the [facility] which was all reviewed. EKG revealed A. fib with RVR at 129 bpm and subsequently repeat EKG also showed A. fib with RVR at 118 bpm. , Chest x-ray was unremarkable. The patient's laboratory evaluation was remarkable for troponin I 0.340, hemoglobin 10.9, platelet, and 65, sodium 141, potassium 3.1, chloride 106, BUN 24, creatinine 0.90, calcium 8.7, AST 52, ALT 28, total bilirubin 1.20, and magnesium 1.9. R epeat laboratory evaluation at our facility revealed a troponin of 0.371. Patient admitted for atrial fibrillation with RVR and non-ST elevation [place]. Cardiology consulted. LVEF 40%, small pericardial effusion, mild aortic regurgitation, moderate mitral regurgitation. Transition off of IV Cardizem, and IV heparin to oral metoprolol and Eliquis. Respiratory function worsening. Chest x-ray repeated. Shows right lower lobe opacity. Started on IV antibiotics. Subjective: Patient seen and examined at bedside. Patient was delirious overnight. Also had urinary retention, had straight cath 1. Denies any respiratory complaint. Sitter at bedside. Pertinent positives and negatives as discussed above, a complete review of systems was performed and all other systems are negative. Vitals Signs Reviewed. General: nontoxic, no distress, appears at stated age Derm: warm, dry Head: atraumatic, normocephalic, symmetric Eyes: EOMI, no lid lag, anicteric sclera Mouth: no lip lesion, mucus membranes moist Cardiovascular: S1S2 irregular, no murmur Lungs: Right Easler rales , no accessory muscle use Abdominal: soft, nontender to palpation, no guarding, no appreciable organomegaly Ext: no gross muscle atrophy, no edema, no contractures Neuro: CN II-XI grossly intact, no focal neuro deficits Psych: Alert, oriented, appropriate affect Data Reviewed Today: Pertinent Labs: BMP pending, will be reviewed when available Imaging: No new imaging Assessment and Plan: Patient needs close monitoring. Prognosis guarded. Active: Acute encephalopathy, likely delirium Acute Hypoxic respiratory failure Bacterial pneumonia, aspiration versus community-acquired -Continue wean oxygen -Continue IV azithromycin 500 mg daily, IV ceftriaxone 2 g every 24 hours -Sputum cultures and Legionella urine antigen pending -Speech therapy consulted -Sitter at bedside -Repeat bladder scan, if retaining may need Shepherd catheter. Atrial fibrillation with RVR, now rate controlled Non-ST elevation [place], likely type II Systolic cardiomyopathy, unclear if ischemic or nonischemic -Cardiology following, metoprolol is now 150 twice a day, Eliquis 5 mg twice a day -on losartan 12.5 daily -Continue Plavix 75 mg, atorvastatin 80 mg -Continue telemetry Debility - PT consulted Resolved: Hypokalemia Chronic: Dyslipidemia CAD BPH PAD AAA status post repair Gout DVT ppx: Eliquis Code status: Full code Anticipated discharge place: Pending clinical course Anticipated discharge time: Pending clinical course Objective - Vital Signs Vital signs: Vital Signs Temp 97.5 F L 03/06/23 03:48 Pulse 79 03/06/23 09:15 Resp 16 03/06/23 09:15 BP 115/58 03/06/23 09:15 Pulse Ox 95 03/06/23 09:15 FiO2 Intake & Output 03/05/23 03/06/23 03/06/23 18:59 06:59 18:59 Intake Total 600 Output Total 450 Balance 600 -450 Intake: Oral 600 Output: Urine 450 Straight 450 Other: Voiding Method Toilet Toilet Toilet # Voids 1 # Bowel Movements 1 - Labs CBC & Chem 7: 03/05/23 12:23 03/05/23 12:23 Labs: Abnormal Lab Results - Last 24 Hours (Table) 03/05/23 03/05/23 Range/Units 12:23 12:23 RBC 4.10 L (4.30-5.90) m/uL Hgb 11.5 L (13.0-17.5) gm/dL Hct 37.5 L (39.0-53.0) % MCHC 30.8 L (31.0-37.0) g/dL RDW 17.4 H (11.5-15.5) % Lymphocytes # 0.7 L (1.0-4.8) k/uL BUN 33 H (9-20) mg/dL Glucose 111 H (74-99) mg/dL
[2023-03-06 11:41] LABS: African American GFR (CKD) 64 (>60 ml/min/1.73 sqM); Anion Gap 11 mmol/L; Blood Urea Nitrogen 37 mg/dL (9-20); Calcium 8.9 mg/dL (8.4-10.2); Carbon Dioxide 23 mmol/L (22-30); Chloride 108 mmol/L (98-107); Glucose 138 mg/dL (74-99); Non-African American GFR(CKD) 55 (>60 ml/min/1.73 sqM); Potassium 4.2 mmol/L (3.5-5.1); Sodium 142 mmol/L (137-145)
[2023-03-06] MEDS: LOSARTAN 25 MG TAB PO SCH (11:56)
[2023-03-06] MEDS: AZITHROMYCIN 500 MG in SODIUM CHLORIDE 0.9% 250 ML IVPB SCH (11:57)
[2023-03-06] MEDS ORDERED: FUROSEMIDE 10 MG/ML 4 ML VIAL IV STA (12:52)
[2023-03-06] MEDS ORDERED: SODIUM CHLORIDE 0.9% 1,000 ML IV ONE (13:14)
[2023-03-06 13:22] LABS: ABG Base Excess -9.2 mmol/L; ABG HCO3 16 mmol/L (21-25); ABG Oxygen Saturation 96.7 % (94-97); ABG PCO2 29 mmHg (35-45); ABG PH 7.35 (7.35-7.45); ABG PO2 91 mmHg (83-108); ABG TCO2 17 mmol/L (19-24); Allen Test Performed? Yes
--- NOTE | 2023-03-06 13:33 | XR ---
EXAMINATION TYPE: XR chest 1V portable DATE OF EXAM: 03/06/2023 Comparison: 03/05/2023 Clinical History: 78 year-old male shortness of breath, dyspnea Findings: Heart borderline in size. Focal bibasilar opacities, minimally improved on the right and slightly wor sened on the left. Upper lungs are relatively clear. Suspect old calcified granuloma periphery of the left upper lobe. Possible additional calcified granuloma or calcified lymph node left AP window peg on. Impression: Bibasilar opacities, minimally improved on the right but worsened on the left.
--- NOTE | 2023-03-06 14:33 | P.PN ---
Subjective Progress Note Date: 03/06/23 The patient is an 78-year-old male with multiple comorbid conditions, who presented to the hospital with weakness and weight loss. He was found to be in A. fib with RVR. Patient was given adenosine and subsequently Cardizem drip. The patient has been started on oral beta blockers and weaned from Cardizem drip. The patient did have mildly elevated troponins, likely secondary to demand ischemia. Overnight the patient did have a run of ventricular tachycardia. Patient was asymptomatic at the time. He had been known to have frequent PVCs. Echocardiogram reveals reduced ejection fraction of 40% with global hypokinesis and moderate mitral regurgitation. Small pericardial effusion also noted. Patient was interviewed and examined resting in bed. He is able to lie flat without orthopnea or difficulty breathing. He denies any current chest pain. GENERAL: Well-appearing, well-nourished and in no acute distress. NECK: Supple without JVD or thyromegaly. LUNGS: Breath sounds clear to auscultation bilaterally. Respiration equal and unlabored. No wheezes, rales or rhonchi. HEART: Regular rate and rhythm without murmurs, rubs or gallops. S1 and S2 heard. EXTREMITIES: Normal range of motion, no edema. No clubbing or cyanosis. Peripheral pulses intact and strong. TELEMETRY: Persistent rate controlled atrial fibrillation with frequent PVCs IMPRESSION: New onset paroxysmal atrial fibrillation with RVR Nonsustained ventricular tachycardia Cardiomyopathy, new onset Elevated troponin, demand ischemia versus acute coronary syndrome Smoking cessation 1 month ago PLAN: Increase beta jose Continue supportive treatment Plan for coronary angiogram on Wednesday Nothing by mouth after midnight the evening prior I am dictating on behalf of Dr Adan Kramer's history/physical and assessmen t/plan. Objective - Vital Signs Vital signs: Vital Signs Temp 97.5 F L 03/06/23 03:48 Pulse 73 03/06/23 13:59 Resp 13 03/06/23 13:59 BP 105/69 03/06/23 13:59 Pulse Ox 96 03/06/23 13:59 FiO2 Intake & Output 03/05/23 03/06/23 03/06/23 18:59 06:59 18:59 Intake Total 600 118 Output Total 450 Balance 600 -450 118 Intake: Oral 600 118 Output: Urine 450 Straight 450 Other: Voiding Method Toilet Toilet External Catheter # Voids 1 # Bowel Movements 1 - Labs CBC & Chem 7: 03/05/23 12:23 03/06/23 10:57 Labs: Abnormal Lab Results - Last 24 Hours (Table) 03/06/23 03/06/23 Range/Units 10:57 13:18 ABG pCO2 29 L (35-45) mmHg ABG HCO3 16 L (21-25) mmol/L ABG Total CO2 17 L (19-24) mmol/L Chloride 108 H (98-107) mmol/L BUN 37 H (9-20) mg/dL Glucose 138 H (74-99) mg/dL
[2023-03-06 14:42] LABS: Anisocytosis Slight; HCT 35.4 % (39.0-53.0); HGB 10.7 gm/dL (13.0-17.5); Hypochromasia Marked; MCH 28.3 pg (25.0-35.0); MCHC 30.3 g/dL (31.0-37.0); MCV 93.1 fL (80.0-100.0); Mean Platelet Volume 11.4; Platelet Count 159 k/uL (150-450); RDW 17.3 % (11.5-15.5); WBC 5.4 k/uL (3.8-10.6)
[2023-03-06 14:54] LABS: African American GFR (CKD) 61 (>60 ml/min/1.73 sqM); Anion Gap 14 mmol/L; Blood Urea Nitrogen 37 mg/dL (9-20); Calcium 8.8 mg/dL (8.4-10.2); Carbon Dioxide 21 mmol/L (22-30); Chloride 108 mmol/L (98-107); Glucose 153 mg/dL (74-99); Magnesium 1.8 mg/dL (1.6-2.3); Non-African American GFR(CKD) 53 (>60 ml/min/1.73 sqM); Potassium 4.3 mmol/L (3.5-5.1); Sodium 143 mmol/L (137-145)
[2023-03-06] MEDS: allopurinoL 300 MG TAB PO SCH (20:16)
[2023-03-06] MEDS: CLOPIDOGREL 75 MG TAB PO SCH (20:16)
[2023-03-06] MEDS: ATORVASTATIN 80 MG TAB PO SCH (20:16)
[2023-03-06] MEDS: FINASTERIDE 5 MG TAB PO SCH (20:16)
[2023-03-07] MEDS: APIXABAN 5 MG TAB PO SCH ×2 (09:10→20:07)
[2023-03-07] MEDS: METOPROLOL TARTRATE 50 MG TAB PO SCH ×2 (09:10→20:06)
[2023-03-07] MEDS: TAMSULOSIN 0.4 MG CAP.ER.24H PO SCH ×2 (09:10→20:06)
[2023-03-07 09:44] LABS: Anisocytosis Slight; Basophils % (A) 0 %; Eosinophils % (A) 0 %; HCT 38.1 % (39.0-53.0); HGB 11.8 gm/dL (13.0-17.5); Hypochromasia Marked; Lymphocytes # (A) 0.9 k/uL (1.0-4.8); Lymphocytes % (A) 16 %; MCH 28.3 pg (25.0-35.0); MCHC 30.9 g/dL (31.0-37.0); MCV 91.7 fL (80.0-100.0); Mean Platelet Volume 11.3; Monocytes # (A) 0.3 k/uL (0-1.0); Monocytes % (A) 6 %; Neutrophils # (A) 4.5 k/uL (1.3-7.7); Neutrophils % (A) 77 %; Platelet Count 175 k/uL (150-450); RBC 4.15 m/uL (4.30-5.90); RDW 17.3 % (11.5-15.5); WBC 5.9 k/uL (3.8-10.6)
[2023-03-07 09:46] LABS: African American GFR (CKD) 61 (>60 ml/min/1.73 sqM); Anion Gap 10 mmol/L; Blood Urea Nitrogen 36 mg/dL (9-20); Calcium 9.2 mg/dL (8.4-10.2); Carbon Dioxide 26 mmol/L (22-30); Chloride 107 mmol/L (98-107); Glucose 123 mg/dL (74-99); Non-African American GFR(CKD) 53 (>60 ml/min/1.73 sqM); Potassium 4.7 mmol/L (3.5-5.1); Sodium 143 mmol/L (137-145)
[2023-03-07] MEDS ORDERED: ALPRAZolam 0.25 MG TAB PO PRN (10:39)
[2023-03-07] MEDS ORDERED: NITROGLYCERIN SL TABS 0.4 MG TAB SUBLINGUAL PRN (10:39)
[2023-03-07] MEDS ORDERED: ALPRAZolam 0.5 MG TAB PO PRN (10:39)
[2023-03-07] MEDS ORDERED: IPRATROPIUM-ALBUTEROL 3 ML NEB INHALATION PRN (10:57)
[2023-03-07] MEDS: LOSARTAN 25 MG TAB PO SCH (11:10)
[2023-03-07] MEDS: SODIUM CHLORIDE 0.9% 1,000 ML in EMPTY BAG 1 BAG IV SCH (11:11)
--- NOTE | 2023-03-07 12:32 | P.PN ---
Subjective Progress Note Date: 03/07/23 Hospital Course: 78-year-old male with a PMH of BPH, CAD, GERD, hyperlipidemia, peripheral vasc ular disease, AAA status post repair, and ASD who was sent into the emergency room from [facility] where the patient initially presented with complaints of shortness of breath and lightheadedness. The patient underwent an extensive evaluation at the [facility] which was all reviewed. EKG revealed A. fib with RVR at 129 bpm and subsequently repeat EKG also showed A. fib with RVR at 118 bpm. , Chest x-ray was unremarkable. The patient's laboratory evaluation was remarkable for troponin I 0.340, hemoglobin 10.9, platelet, and 65, sodium 141, potassium 3.1, chloride 106, BUN 24, creatinine 0.90, calcium 8.7, AST 52, ALT 28, total bilirubin 1.20, and magnesium 1.9. R epeat laboratory evaluation at our facility revealed a troponin of 0.371. Patient admitted for atrial fibrillation with RVR and non-ST elevation [place]. Cardiology consulted. LVEF 40%, small pericardial effusion, mild aortic regurgitation, moderate mitral regurgitation. Transition off of IV Cardizem, and IV heparin to oral metoprolol and Eliquis. Respiratory function worsening. Chest x-ray repeated. Shows right lower lobe opacity. Started on IV antibiotics. Pulmonology also following. Subjective: Patient seen and examined at bedside. Patient was delirious overnight. Also had urinary retention, had straight cath 1. Denies any respiratory complaint. Sitter at bedside. Pertinent positives and negatives as discussed above, a complete review of systems was performed and all other systems are negative. Vitals Signs Reviewed. General: nontoxic, no distress, appears at stated age Derm: warm, dry Head: atraumatic, normocephalic, symmetric Eyes: EOMI, no lid lag, anicteric sclera Mouth: no lip lesion, mucus membranes moist Cardiovascular: S1S2 irregular, no murmur Lungs: Right Easler rales , no accessory muscle use Abdominal: soft, nontender to palpation, no guarding, no appreciable organomegaly Ext: no gross muscle atrophy, no edema, no contractures Neuro: CN II-XI grossly intact, no focal neuro deficits Psych: Alert, oriented, appropriate affect Data Reviewed Today: Pertinent Labs: WBC 5.9, hemoglobin 11.8, potassium 4.7, creatinine 1.27 Imaging: CT chest without contrast pending, will be reviewed when available Assessment and Plan: Patient needs close monitoring. Prognosis guarded. Active: Acute encephalopathy, likely delirium Acute Hypoxic respiratory failure, resolved Bacterial pneumonia, aspiration versus community-acquired -Pulmonology consulted, pending recommendations -On duo nebs 4 times a day when necessary -Continue IV azithromycin 500 mg daily, IV ceftriaxone 2 g every 24 hours -Sputum cultures pending -Speech therapy consulted -Patient voiding and having bowel movements Atrial fibrillation with RVR, now rate controlled Non-ST elevation [place], likely type II Systolic cardiomyopathy, unclear if ischemic or nonischemic -Cardiology following, metoprolol is now 150 twice a day, Eliquis 5 mg twice a day -on losartan 12.5 daily -Continue Plavix 75 mg, atorvastatin 80 mg -Continue telemetry Debility - PT consulted Resolved: Hypokalemia Chronic: Dyslipidemia CAD BPH PAD AAA status post repair Gout DVT ppx: Eliquis Code status: Full code Anticipated discharge place: Pending clinical course Anticipated discharge time: Pending clinical course Objective - Vital Signs Vital signs: Vital Signs Temp 97.7 F 03/06/23 20:00 Pulse 94 03/07/23 11:04 Resp 17 03/07/23 11:04 BP 115/75 03/07/23 11:04 Pulse Ox 98 03/07/23 11:04 FiO2 Intake & Output 03/06/23 03/07/23 03/07/23 18:59 06:59 18:59 Intake Total 340 540 118 Output Total 700 600 Balance -360 -60 118 Intake: Oral 340 540 118 Output: Urine 700 600 Other: Voiding Method External Catheter External Catheter External Catheter # Voids 1 1 - Labs CBC & Chem 7: 03/07/23 08:12 03/07/23 08:12 Labs: Abnormal Lab Results - Last 24 Hours (Table) 03/06/23 03/06/23 03/06/23 Range/Units 13:18 14:06 14:06 RBC 3.80 L (4.30-5.90) m/uL Hgb 10.7 L (13.0-17.5) gm/dL Hct 35.4 L (39.0-53.0) % MCHC 30.3 L (31.0-37.0) g/dL RDW 17.3 H (11.5-15.5) % Lymphocytes # (1.0-4.8) k/uL ABG pCO2 29 L (35-45) mmHg ABG HCO3 16 L (21-25) mmol/L ABG Total CO2 17 L (19-24) mmol/L Chloride (98-107) mmol/L Carbon Dioxide (22-30) mmol/L BUN (9-20) mg/dL Creatinine (0.66-1.25) mg/dL Glucose (74-99) mg/dL Plasma Lactic Acid Glen 3.6 H* (0.7-2.0) mmol/L 03/06/23 03/06/23 03/07/23 Range/Units 14:06 17:24 08:12 RBC 4.15 L (4.30-5.90) m/uL Hgb 11.8 L (13.0-17.5) gm/dL Hct 38.1 L (39.0-53.0) % MCHC 30.9 L (31.0-37.0) g/dL RDW 17.3 H (11.5-15.5) % Lymphocytes # 0.9 L (1.0-4.8) k/uL ABG pCO2 (35-45) mmHg ABG HCO3 (21-25) mmol/L ABG Total CO2 (19-24) mmol/L Chloride 108 H (98-107) mmol/L Carbon Dioxide 21 L (22-30) mmol/L BUN 37 H (9-20) mg/dL Creatinine 1.27 H (0.66-1.25) mg/dL Glucose 153 H (74-99) mg/dL Plasma Lactic Acid Glen 2.3 H* (0.7-2.0) mmol/L 03/07/23 Range/Units 08:12 RBC (4.30-5.90) m/uL Hgb (13.0-17.5) gm/dL Hct (39.0-53.0) % MCHC (31.0-37.0) g/dL RDW (11.5-15.5) % Lymphocytes # (1.0-4.8) k/uL ABG pCO2 (35-45) mmHg ABG HCO3 (21-25) mmol/L ABG Total CO2 (19-24) mmol/L Chloride (98-107) mmol/L Carbon Dioxide (22-30) mmol/L BUN 36 H (9-20) mg/dL Creatinine 1.27 H (0.66-1.25) mg/dL Glucose 123 H (74-99) mg/dL Plasma Lactic Acid Glen (0.7-2.0) mmol/L
[2023-03-07] MEDS: AZITHROMYCIN 500 MG in SODIUM CHLORIDE 0.9% 250 ML IVPB SCH (13:31)
--- NOTE | 2023-03-07 13:34 | P.PN ---
Subjective Progress Note Date: 03/07/23 This is Pedro Henry NP, I'm dictating on behalf of Dr. Kramer's H&P and A&P. Patient was interviewed and examined. Patient is a pleasant 78-year-old male with multiple comorbid conditions who presented to the hospital with primary weakness. Patient was in A. fib with RVR, and started on adenosine and Cardizem drip. Oral beta blockers were started and the patient was weaned off his Cardizem drip, his atrial fibrillation has been brought under control and the patient is currently in A. fib with controlled response. Patient demonstrated mildly elevated troponins which are likely secondary to demand ischemia, however it's unsure if the patient actually has blockages or not. Patient had a run of ventricular tachycardia 2 nights ago, which gives us further indication that there could be possible blockage. Patient was asymptomatic during the run of ventricular tachycardia. Today we note the patient has had no further runs of V. tach overnight. Patient remains somewhat short of breath while at rest. He otherwise denies chest pain, heart palpitations, nausea, dizziness, and syncopal episodes. GENERAL: Well-appearing, well-nourished and in no acute distress. NECK: Supple without JVD or thyromegaly. LUNGS: Breath sounds demonstrate coarse rhonchi throughout. Respiration equal and unlabored. No wheezes, rales. HEART: Regular rate and irregular rhythm without murmurs, rubs or gallops. S1 and S2 heard. EXTREMITIES: Normal range of motion, no edema. No clubbing or cyanosis. Per ipheral pulses intact and strong. VITALS: Pulse 97, respirations 17, blood pressure 115/75, O2 saturation 98% on room air TELEMETRY: Atrial fibrillation with controlled ventricular response LABS: White count 5.9, hemoglobin 11.8, platelets 175, sodium 143, potassium 4.7, BUN 36, creatinine 1.27, calcium 9.2 IMPRESSION: 1. New onset paroxysmal atrial fibrillation with rapid ventricular response 2. Nonsustained ventricular tachycardia 3. New onset cardiomyopathy 4. Elevated troponin, demand ischemia versus ACS PLAN: Give IV fluids starting now at 50 mL per hour. Goal is to improve creatinine so the patient can undergo cardiac catheterization tomorrow. Recheck CBC and BMP tomorrow morning prior to catheterization. Patient is scheduled for possible cardiac catheterization tomorrow. Dr. Kramer is on the case only because he is unsure which physician the patient will be under. Further recommendations based on patient's clinical course. Objective - Vital Signs Vital signs: Vital Signs Temp 97.7 F 03/06/23 20:00 Pulse 94 03/07/23 11:04 Resp 17 03/07/23 11:04 BP 115/75 03/07/23 11:04 Pulse Ox 98 03/07/23 11:04 FiO2 Intake & Output 03/06/23 03/07/23 03/07/23 18:59 06:59 18:59 Intake Total 340 540 118 Output Total 700 600 Balance -360 -60 118 Intake: Oral 340 540 118 Output: Urine 700 600 Other: Voiding Method External Catheter External Catheter Toilet Urinal External Catheter # Voids 1 1 - Labs CBC & Chem 7: 03/07/23 08:12 03/07/23 08:12 Labs: Abnormal Lab Results - Last 24 Hours (Table) 03/06/23 03/06/23 03/06/23 Range/Units 14:06 14:06 14:06 RBC 3.80 L (4.30-5.90) m/uL Hgb 10.7 L (13.0-17.5) gm/dL Hct 35.4 L (39.0-53.0) % MCHC 30.3 L (31.0-37.0) g/dL RDW 17.3 H (11.5-15.5) % Lymphocytes # (1.0-4.8) k/uL Chloride 108 H (98-107) mmol/L Carbon Dioxide 21 L (22-30) mmol/L BUN 37 H (9-20) mg/dL Creatinine 1.27 H (0.66-1.25) mg/dL Glucose 153 H (74-99) mg/dL Plasma Lactic Acid Glen 3.6 H* (0.7-2.0) mmol/L 03/06/23 03/07/23 03/07/23 Range/Units 17:24 08:12 08:12 RBC 4.15 L (4.30-5.90) m/uL Hgb 11.8 L (13.0-17.5) gm/dL Hct 38.1 L (39.0-53.0) % MCHC 30.9 L (31.0-37.0) g/dL RDW 17.3 H (11.5-15.5) % Lymphocytes # 0.9 L (1.0-4.8) k/uL Chloride (98-107) mmol/L Carbon Dioxide (22-30) mmol/L BUN 36 H (9-20) mg/dL Creatinine 1.27 H (0.66-1.25) mg/dL Glucose 123 H (74-99) mg/dL Plasma Lactic Acid Glen 2.3 H* (0.7-2.0) mmol/L
--- NOTE | 2023-03-07 13:40 | P.CNPUL ---
History of Present Illness Consult date: 03/07/23 Requesting physician: Esvin Dickens Reason for consult: dyspnea, cough, COPD, pneumonia Chief complaint: Atrial fibrillation/palpitations History of present illness: This is an 78-year-old white male with history of multiple medical problems including coronary artery disease, COPD, peripheral vessel occlusive disease, hiatal hernia, abdominal aortic aneurysm requiring repair, back surgery and knee replacement, [id number] smoking history, patient presented to the ER on 03/02/2023, mostly his presentation was presentation of atrial fibrillation with RVR. Apparently the patient was seen by his primary care physician that day, and EKG was abnormal. Hence he was sent to ER. His initial presentation to the primary care was mostly a presentation of weakness, fatigue, pain in his lower e xtremities, and cannot stand on his feet. Patient had no symptoms of shortness of breath or chest pain at this time. Upon evaluation in the ER, patient was found to have atrial fibrillation with RVR, chest x-ray questioned a right lower lobe pneumonia, although the patient had no symptoms to suggest pneumonia had no fever, no chills, he does have occasional chronic cough. No hemoptysis and no c hest pain. Cardiology was consulted on this patient, and he was treated with Cardizem drip Lopressor, and heparin. Again his initial chest x-ray showed a right lower lobe consolidation with air bronchogram, and follow-up chest x-ray showed bibasilar opacities with minimal improvement of the right lung consolidation. Clinically, the patient had no symptoms to suggest pneumonia. Patient had no leukocytosis, no fever no chills, no hemoptysis, and his pro- calcitonin level is pending considering the abnormal chest x-ray findings this consult was initiated patient is receiving ceftriaxone empirically, he is also on bronchodilators for underlying COPD patient is receiving also diuretics intermittently. Echocardiogram showed moderate LV dysfunction with ejection fraction in the 40% range patient also noted to have mild aortic insufficiency and aortic sclerosis Review of Systems CONSTITUTIONAL: Denies weight loss, denies fever or chills, but he does have generalized weakness mostly in the lower extremities. And chronic pain in lower extremities. CARDIOVASCULAR: Denies chest pain or orthopnea or PND RESPIRATORY: Occasional but chronic cough. No fever no chills no hemoptysis. GASTROINTESTINAL: Negative.. MUSCULOSKELETAL: Chronic lower extremities pain especially upon walking. NEUROLOGIC: Chronic back pain and chronic weakness in lower extremities. ENDOCRINE: Negative. GENITOURINARY: Negative. HEMATOLOGIC: Negative Psychiatric: Denies any symptoms of active depression. Past Medical History Additional Past Medical History / Comment(s): Atrail septal defect, atherosclerosis, CAD, GERD, Gout, PVD, History of Any Multi-Drug Resistant Organisms: None Reported Past Surgical History: Appendectomy, Heart Catheterization With Stent, Hernia Repair, Orthopedic Surgery Additional Past Surgical History / Comment(s): AAA repair, back surgery,L knee replacement, Date of Last Stent Placement:: n/a Past Psychological History: No Psychological Hx Reported Smoking Status: Former smoker Past Alcohol Use History: Occasional Past Drug Use History: None Reported Medications and Allergies Home Medications Medication Instructions Recorded Confirmed Type Clopidogrel [Plavix] 75 mg PO HS 03/02/23 03/02/23 History Dutasteride [Avodart] 0.5 mg PO HS 03/02/23 03/02/23 History Tamsulosin HCl [Flomax] 0.4 mg PO BID 03/02/23 03/02/23 History allopurinoL [Zyloprim] 300 mg PO HS 03/02/23 03/02/23 History Apixaban [Eliquis] 5 mg PO BID #180 tab 03/04/23 Rx Allergies Allergy/AdvReac Type Severity Reaction Status Date / Time aspirin Allergy Rash/Hives Verified 03/02/23 18:02 ibuprofen Allergy Rash/Hives Verified 03/02/23 18:02 Physical Exam Vitals: Vital Signs Temp Pulse Resp BP Pulse Ox 03/07/23 11:04 94 17 115/75 98 03/07/23 07:45 97 17 99/58 95 03/07/23 04:00 58 L 17 110/80 94 L 03/07/23 00:00 88 17 121/82 100 03/06/23 20:00 97.7 F 70 17 124/82 100 03/06/23 15:32 87 17 118/86 97 03/06/23 13:59 73 13 105/69 96 03/06/23 13:29 58 L 85/60 98 Intake and Output 03/06/23 03/07/23 03/07/23 22:59 06:59 14:59 Intake Total 222 540 118 Output Total 700 600 Balance -478 -60 118 Intake: Oral 222 540 118 Output: Urine 700 600 Other: Voiding Method External Catheter External Catheter Toilet Urinal External Catheter # Voids 1 Physical Exam: Revealed 78-year-old white male in no distress, on room air, O2 sats is 98% Head: Atraumatic normocephalic. HEENT:[Neck is supple.] [No neck masses.] [No thyromegaly.] [No JVD.] Dry mucous membranes noted Chest: Crackles and rhonchi at the bases, more so on forced expiratory maneuver. Cardiac Exam: Irregular irregular rhythm [Normal S1 and S2, no S3 gallop, over 6 systolic murmur thought the precordium Abdomen: [Soft, nontender, no megaly, no rebound, no guarding, normal bowel sounds.] Extremities: [No clubbing, no edema, no cyanosis.] Diminished distal pulses in the feet bilaterally, no cyanosis. Neurological Exam: [No focal neurologic deficit.] Alert and oriented 3. Psychiatric: Normal mood affect and normal mental status examination. Skin: No rashes. Results - Laboratory Findings CBC and BMP: 03/07/23 08:12 03/07/23 08:12 ABG ABG pH 7.35 (7.35-7.45) 03/06/23 13:18 ABG pCO2 29 mmHg (35-45) L 03/06/23 13:18 ABG pO2 91 mmHg (83-108) 03/06/23 13:18 ABG O2 Saturation 96.7 % (94-97) 03/06/23 13:18 Abnormal lab findings: Abnormal Labs 03/02/23 03/02/23 03/03/23 17:19 23:02 05:35 RBC Hgb Hct MCHC RDW Plt Count Lymphocytes # APTT 33.5 H 38.5 H ABG pCO2 ABG HCO3 ABG Total CO2 Chloride Carbon Dioxide BUN Creatinine Glucose Plasma Lactic Acid Glen Troponin I 0.371 H* HDL Cholesterol 03/03/23 03/03/23 03/03/23 05:35 05:35 05:35 RBC 3.93 L Hgb 11.2 L Hct 35.8 L MCHC RDW 17.4 H Plt Count Lymphocytes # APTT ABG pCO2 ABG HCO3 ABG Total CO2 Chloride 108 H Carbon Dioxide BUN 24 H Creatinine Glucose 100 H Plasma Lactic Acid Glen Troponin I 0.366 H* HDL Cholesterol 03/03/23 03/04/23 03/04/23 17:09 08:29 08:29 RBC 3.81 L Hgb 10.6 L Hct 34.9 L MCHC 30.4 L RDW 17.6 H Plt Count 145 L Lymphocytes # 0.7 L APTT 55.6 H ABG pCO2 ABG HCO3 ABG Total CO2 Chloride 108 H Carbon Dioxide BUN 25 H Creatinine Glucose 128 H Plasma Lactic Acid Glen Troponin I HDL Cholesterol 29.90 L 03/04/23 03/05/23 03/05/23 16:38 12:23 12:23 RBC 4.10 L Hgb 11.5 L Hct 37.5 L MCHC 30.8 L RDW 17.4 H Plt Count Lymphocytes # 0.7 L APTT 62.4 H ABG pCO2 ABG HCO3 ABG Total CO2 Chloride Carbon Dioxide BUN 33 H Creatinine Glucose 111 H Plasma Lactic Acid Glen Troponin I HDL Cholesterol 03/06/23 03/06/23 03/06/23 10:57 13:18 14:06 RBC 3.80 L Hgb 10.7 L Hct 35.4 L MCHC 30.3 L RDW 17.3 H Plt Count Lymphocytes # APTT ABG pCO2 29 L ABG HCO3 16 L ABG Total CO2 17 L Chloride 108 H Carbon Dioxide BUN 37 H Creatinine Glucose 138 H Plasma Lactic Acid Glen Troponin I HDL Cholesterol 03/06/23 03/06/23 03/06/23 14:06 14:06 17:24 RBC Hgb Hct MCHC RDW Plt Count Lymphocytes # APTT ABG pCO2 ABG HCO3 ABG Total CO2 Chloride 108 H Carbon Dioxide 21 L BUN 37 H Creatinine 1.27 H Glucose 153 H Plasma Lactic Acid Glen 3.6 H* 2.3 H* Troponin I HDL Cholesterol 03/07/23 03/07/23 08:12 08:12 RBC 4.15 L Hgb 11.8 L Hct 38.1 L MCHC 30.9 L RDW 17.3 H Plt Count Lymphocytes # 0.9 L APTT ABG pCO2 ABG HCO3 ABG Total CO2 Chloride Carbon Dioxide BUN 36 H Creatinine 1.27 H Glucose 123 H Plasma Lactic Acid Glen Troponin I HDL Cholesterol - Diagnostic Findings Chest x-ray: image reviewed (As noted in HPI) Assessment and Plan Assessment: Impression: Acute hypoxic respiratory failure, multifactorial. New onset atrial fibrillation with RVR Cardiomyopathy and LV dysfunction with ejection fraction of 40% Acute exacerbation of COPD Possible bibasilar pneumonia, although the findings could be findings of pulmonary edema, pro-calcitonin level is pending. Clinically the patient had no symptoms to suggest pneumonia, patient had no clinical history to suggest aspiration, and the clinical symptoms are not symptoms to suggest pneumonia however the findings on the chest x-ray are highly suspicious for pneumonia. Ex-smoker, patient had a 75-[id number]-[id number] smoking history quit about a week ago. Elevated troponin, being addressed by cardiology Peripheral vessel occlusive disease with chronic lower extremities pain and weakness Recommendations: Agree with present treatment plan for now. Agree with antibiotics empirically Awaiting pro-calcitonin level CT of the chest without contrast was ordered to further evaluate the lower lobes adequately. Clinically the patient does not have clear-cut symptoms of pneumonia. Continue bronchodilators for COPD Based on CT of the chest findings, further recommendations will follow Time with Patient: Greater than 30
--- NOTE | 2023-03-07 16:48 | CT ---
EXAMINATION TYPE: CT chest wo con DATE OF EXAM: 03/07/2023 COMPARISON: Radiograph 03/06/2023 HISTORY: 78 year-old male shortness of breath, dyspnea, abnormal chest x-ray, dyspnea TECHNIQUE: Contiguous axial scanning of the chest without IV contrast. Coronal/sagittal reconstructio ns performed. CT DLP: 416.7mGycm. Automatic exposure control utilized for a dose reduction. FINDINGS: Heart is borderline enlarged. Trace pericardial fluid. Mild aortic valvular calcifications. 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 Mild/moderate sclerotic arch calcifications. Bovine configuratio n to the aortic arch. There is aneurysm of the distal arch and 4.2 cm and upper descending thoracic a marisel 4.1 cm. Enlarged caliber to the main right and left pulmonary arteries up to 3.2 cm suggesting pulmonary hype rtension. No thoracic lymphadenopathy with CT size criteria. Moderate right and small left pleural effusions are present. Consolidation and volume loss in the med ial basal right lower lobe. There is complete collapse of the right middle lobe noted. Generalized anasarca change. Numerous hypodense masses throughout the liver estimated to measure up to 6.3 cm. Gallbladder is sofiya apsed. Mild abdominal ascites fluid. Previous aortobiiliac endovascular stent graft. The [place] sac is very large 0.1 cm and shows heterog eneous density within the [place] sac. Enlarged left periaortic lymph node measuring 2.7 cm. Numerous calcified granulomas within the spleen. There is a moderate size hiatal hernia involving approximately a third of the stomach in the lower ch est. Prominent breathing motion artifact in the upper abdomen. Dextrocurvature lower thoracic spine. IMPRESSION: 1. Moderate right and small left pleural effusions along with generalized anasarca change, borderline cardiomegaly, and pulmonary arterial hypertension. Correlate for fluid overload state/mild CHF. 2. Patchy airspace disease and volume loss throughout the basilar right lower lobe. Correlate for pos sible underlying pneumonia. 3. Complete atelectatic collapse right middle lobe. 4. VERY LARGE INFRARENAL AAA MEASURING 8.1 CM. PREVIOUS ENDOVASCULAR ABDOMINAL AORTIC GRAFT. ADVISE C OMPARISON TO ANY AVAILABLE OUTSIDE PRIORS TO DETERMINE ANY CHANGE IN SIZE OF THE [place] SAC. FINDINGS ARE CONCERNING GIVEN HETEROGENEOUS DENSITY WITHIN THE [place] SAC. VASCULAR SURGERY EVALUATION SHOULD BE CONSIDERED. Called to nurse Zuluaga on 3SCARD at 4:43 pm. 5. Multiple hepatic masses measuring up to 6.3 cm suggesting metastatic disease. Enlarged left periao rtic lymph node at 2.7 cm. Correlate for any known oncologic history.
[2023-03-07] MEDS: FINASTERIDE 5 MG TAB PO SCH (20:05)
[2023-03-07] MEDS: allopurinoL 300 MG TAB PO SCH (20:06)
[2023-03-07] MEDS: ATORVASTATIN 80 MG TAB PO SCH (20:06)
[2023-03-07] MEDS: CLOPIDOGREL 75 MG TAB PO SCH (20:07)
[2023-03-08] MEDS: SODIUM CHLORIDE 0.9% 1,000 ML in EMPTY BAG 1 BAG IV SCH (06:25)
[2023-03-08] MEDS: APIXABAN 5 MG TAB PO SCH ×2 (06:25→21:44)
[2023-03-08] MEDS: METOPROLOL TARTRATE 50 MG TAB PO SCH ×2 (06:25→21:44)
[2023-03-08] MEDS: TAMSULOSIN 0.4 MG CAP.ER.24H PO SCH ×2 (06:25→21:44)
[2023-03-08] MEDS ORDERED: HEPARIN SODIUM,PORCINE 10,000 UNIT in SODIUM CHLORIDE 0.9% 1,000 ML IRRIGATION PRN (07:00)
[2023-03-08] MEDS ORDERED: HEPARIN SODIUM,PORCINE (1 ML) 2,500 UNIT in SODIUM CHLORIDE 0.9% 250 ML IRRIGATION PRN (07:00)
[2023-03-08] MEDS ORDERED: ASPIRIN 325 MG TAB PO ONE (07:00)
[2023-03-08] MEDS ORDERED: ATORVASTATIN 80 MG TAB PO ONE (07:00)
[2023-03-08 09:36] LABS: Anisocytosis Slight; Basophils % (A) 0 %; Eosinophils # (A) 0.1 k/uL (0-0.7); Eosinophils % (A) 2 %; HCT 34.9 % (39.0-53.0); HGB 10.7 gm/dL (13.0-17.5); Hypochromasia Marked; Lymphocytes % (A) 20 %; MCH 28.3 pg (25.0-35.0); MCHC 30.6 g/dL (31.0-37.0); MCV 92.7 fL (80.0-100.0); Mean Platelet Volume 10.7; Monocytes # (A) 0.3 k/uL (0-1.0); Monocytes % (A) 6 %; Neutrophils # (A) 3.7 k/uL (1.3-7.7); Neutrophils % (A) 70 %; Platelet Count 157 k/uL (150-450); RBC 3.77 m/uL (4.30-5.90); RDW 17.4 % (11.5-15.5); WBC 5.2 k/uL (3.8-10.6)
[2023-03-08] MEDS ORDERED: FUROSEMIDE 10 MG/ML 2 ML VIAL IV STA (10:06)
[2023-03-08 10:39] LABS: African American GFR (CKD) 70 (>60 ml/min/1.73 sqM); Anion Gap 7 mmol/L; Blood Urea Nitrogen 37 mg/dL (9-20); Calcium 8.9 mg/dL (8.4-10.2); Carbon Dioxide 24 mmol/L (22-30); Chloride 110 mmol/L (98-107); Glucose 90 mg/dL (74-99); Magnesium 1.8 mg/dL (1.6-2.3); Non-African American GFR(CKD) 61 (>60 ml/min/1.73 sqM); Sodium 141 mmol/L (137-145)
--- NOTE | 2023-03-08 11:42 | XR ---
EXAMINATION TYPE: XR chest 2V DATE OF EXAM: 03/08/2023 COMPARISON: 03/06/2023 INDICATION: CHF TECHNIQUE: Frontal and lateral views of the chest are obtained. FINDINGS: The heart size is upper limits of normal for size. The pulmonary vasculature is normal. Minimal linear opacities at the left base. Correlate for atelectasis. There is some increased opacity at the right middle lobe medially. This has improved from comparison right middle lobe pneumonia radha uld be considered. IMPRESSION: 1. Right middle lobe infiltrate. Correlate for pneumonia 2. Platelike atelectasis left base.
[2023-03-08 11:55] VITALS: BMI 41.1
--- NOTE | 2023-03-08 12:08 | P.PN ---
Subjective HISTORY OF PRESENT ILLNESS: This is an 78-year-old male with past medical history of atrial septal defect, peripheral vascular disease status post AAA repair, coronary artery disease with stent, tobacco use and dependence. Patient states he quit smoking 1 month ago and has no alcohol intake. We have been asked to evaluate the patient for new onset atrial fibrillation. Patient states that he initially went to his PCP for weakness and weight loss he was then sent to the local hospital for evaluation and transfer to [facility] for A. fib new onset. Patient is status post adenosine and subsequently Cardizem drip and heparin drip. Patient is seen today in the emergency center waiting for a bed on the cardiac stepdown unit. Patient also states that he has shortness of breath with minimal activity and a chronic coug h. He has lower extremity edema. No chest pain. EKG atrial fibrillation with PVCs Echocardiogram reveals EF of 40%. Moderate mitral regurgitation. Aortic valve sclerosis with mild aortic insufficiency. WBC 6, hemoglobin 11.3, platelet count 150. Sodium 139, potassium 3.5, BUN 24 and creatinine 0.9. Troponin 0.371 and 0.366. Home cardiac medications: Plavix 75 mg daily, Avodart 0.5 mg at bedtime. 03/04 Seen today on the cardiac stepdown unit. Telemetry is atrial fibrillation running around 107 bpm. Patient remains on Cardizem drip at 2.5 mg per hour and was started on Lopressor 50 mg twice daily yesterday. He is also maintained on heparin drip. Heart rate is in the 60s to 80s, blood pressure 134/88, pulse ox 98% on 2 L nasal cannula. Repeat blood work reveals hemoglobin 10.6, platelet count 145. BUN 25 creatinine 1.06. Potassium 3.9. 03/05 Telemetry is atrial fibrillation running between 76 and 110. Patient is currently maintained on Lopressor 75 mg twice daily and Cardizem drip was discontinued yesterday afternoon. Losartan was also added yesterday for blood pressure control. 03/07/2023 Patient is a pleasant 78-year-old male with multiple comorbid conditions who presented to the hospital with primary weakness. Patient was in A. fib with RVR, and started on adenosine and Cardizem drip. Oral beta blockers were started and the patient was weaned off his Cardizem drip, his atrial fibrillation has been brought under control and the patient is currently in A. fib with controlled response. Patient demonstrated mildly elevated troponins which are likely secondary to demand ischemia, however it's unsure if the patient actually has blockages or not. Patient had a run of ventricular tachycardia 2 nights ago, which gives us further indication that there could be possible blockage. Patient was asymptomatic during the run of ventricular tachycardia. Today we note the patient has had no further runs of V. tach overnight. Patient remains somewhat short of breath while at rest. He otherwise denies chest pain, heart palpitations, nausea, dizziness, and syncopal episodes. 03/08/2023 Issue examined this morning at the bedside. Patient is confused at the time of examination. He currently denies chest pain or pressure. He denies shortness of breath. Telemetry reveals atrial fibrillation with a heart rate in the 50s and frequent PVCs. PHYSICAL EXAM: VITAL SIGNS: Reviewed. GENERAL: Well-developed in no acute distress. NECK: Supple. No JVD or thyromegaly LUNGS: Respirations even and unlabored. Lungs essentially clear to auscultation bilaterally. HEART: Irregular rate and rhythm. S1 and S2 heard. EXTREMITIES: Normal range of motion. No clubbing or cyanosis. Peripheral pulses intact. No lower extremity edema ASSESSMENT: New-onset paroxysmal atrial fibrillation with RVR, currently rate controlled Nonsustained ventricular tachycardia New-onset cardiomyopathy, EF 40%, ischemic versus nonischemic Acute heart failure with reduced EF Possible bibasilar pneumonia Altered mental status Hypertension Former nicotine dependence, patient quit smoking 1 month ago PLAN: No plans for cardiac catheterization today secondary to altered mental status Give 1 dose of IV Lasix 20 mg 1. Discontinue IV fluids Check BNP and obtain CXR Continue additional cardiac medications Continue telemetry monitoring Further recommendations pending patient's course Nurse practitioner note has been reviewed by physician. Signing provider agrees with the documented findings, assessment, and plan of care. Objective - Vital Signs Vital signs: Vital Signs Temp 97.4 F L 03/08/23 11:48 Pulse 63 03/08/23 11:48 Resp 20 03/08/23 11:48 BP 129/72 03/08/23 11:48 Pulse Ox 98 03/08/23 11:48 FiO2 Intake & Output 03/07/23 03/08/23 03/08/23 18:59 06:59 18:59 Intake Total 938 Balance 938 Weight 130 kg Intake: Oral 938 Other: Voiding Method Toilet Toilet Toilet Urinal Urinal Urinal External Catheter External Catheter # Voids 2 1 1 # Bowel Movements 2 - Labs CBC & Chem 7: 03/08/23 09:02 03/08/23 09:02 Labs: Abnormal Lab Results - Last 24 Hours (Table) 03/07/23 03/08/23 03/08/23 Range/Units 08:12 09:02 09:02 RBC 3.77 L (4.30-5.90) m/uL Hgb 10.7 L (13.0-17.5) gm/dL Hct 34.9 L (39.0-53.0) % MCHC 30.6 L (31.0-37.0) g/dL RDW 17.4 H (11.5-15.5) % Chloride 110 H (98-107) mmol/L BUN 37 H (9-20) mg/dL Procalcitonin 0.29 H (0.02-0.09) ng/mL
--- NOTE | 2023-03-08 12:21 | P.PN ---
Subjective Progress Note Date: 03/08/23 Hospital course: Patient is a very pleasant 78-year-old male with a past medical history of peripheral vascular disease, CAD, hypertension, hyperlipidemia, AAA status post repair, and ASD. Patient presented to the emergency department on 03/02/23 from [facility] where patient initially presented with a chief complaint of shortness of breath and dizziness. Patient underwent evaluation there and was found to have atrial fibrillation with RVR at 118 bpm and a troponin of 0.3406 she was transferred to our facility for further evaluation, admission, and evaluation by mh teacher. Upon arrival to our facility repeat troponin was 0.371. Patient was admitted under services of consultation to cardiology. Influenza A, and for the B, C, and Covid PCR's were negative. Echocardiogram was completed revealing reduced EF of 40% with reported enlarged atria and mitral annular calcification with moderate mitral regurgitation and aortic valve sclerosis with mild aortic insufficiency and small pericardial effusion globally. Physical exam: Patient seen and fully evaluated at the bedside. Patient currently alert to person and place confused to time and situation. Patient able to state full name and that he is at [facility]. Patient is able to state who his urinary care physician is and answers most questions correctly. Patient states it was 2022 instead of 2023. Patient remains slightly confused as to why he is in the hospital stating he was brought here because something just isn't working with his legs anymore and he was too weak to walk. Vital signs reviewed and stable. General: Nontoxic, no distress and appears stated age. Derm: Skin warm and dry, normal coloration for ethnicity. Head: Atraumatic, normocephalic and symmetric. Eyes: EOMs intact, no lid lag, and anicteric sclera Mouth: no lip lesions, mucus membranes moist Cardiovascular: regular rate and rhythm with normal S1S2, systolic murmur, positive posterior tibial pulses bilaterally, and cap refill < 2 seconds. Lungs: Respirations even, regular, and unlabored on 3 L O2. Lungs slightly diminished with diffuse rhonchi throughout right lung. Abdominal: soft, nontender to palpation, no guarding, no appreciable organomegaly Ext: ROM intact. No gross muscle atrophy, no edema, no contractures Neuro: Speech clear, face symmetrical and CN II-XII grossly intact with no noted focal neuro deficits Psych: A&O 2-3, Alert and oriented to person and place, confused to time and situation. Assessment and Plan of Care: Bacterial pneumonia, aspiration versus community-acquired Acute encephalopathy, likely delirium. Acute Hypoxic respiratory failure, resolved -Pulmonology following and discussed plan of care with call center operations manager Dr. Lewis. -Continue scheduled duo nebs 4 times a day and as needed for shortness of breath and/or wheezing. -Continue supplemental oxygen as needed to maintain SpO2 equal to or greater than 92%. Patient currently on 3 L O2 via nasal cannula with SpO2 of 95%. -Completed 3 day course of azithromycin and currently on day 4 of 5 of IV antibiotics with Rocephin 2 g daily. -Pro-calcitonin elevated at 0.29 -Sputum cultures pending -Speech therapy consulted for swallow eval and appreciate recommendations. Atrial fibrillation with RVR, with controlled ventricular rate Non-ST elevation MD, likely type II Systolic cardiomyopathy with EF of 40%, unclear if ischemic vs nonischemic Pericardial effusion History of CAD History of peripheral arterial disease History of AAA status post repair History of ASD -Cardiology following, planning to take patient for cardiac catheterization -Patient to continue with cardiac medication regimen with Eliquis 5 mg twice daily, atorvastatin 80 mg nightly, Plavix 75 mg nightly, and losartan 12.5 mg daily. -Continue telemetry monitoring Debility - PT consulted Hypokalemia, resolved BPH -Continue Flomax 0.4 mg twice daily. Gout Continue allopurinol 300 mg nightly. Data and imaging reviewed: X-ray completed this morning showing right middle lobe infiltrate with platelike atelectasis at left lung base Labs completed and reviewed. CBC showing normocytic anemia with hemoglobin of 10.7. BMP showing hyperchloremia with chloride of 110 and persistent prerenal azotemia with BUN of 37 and stable creatinine of 1.14 with GFR of 61. Magnesium normal findings at 1.8. Vital signs reviewed, blood pressure 113/63, heart rate 51, respiratory rate 20, temp 97.5F, and SpO2 of 95% on 3 L. DVT ppx: Eliquis Code status: Full code Anticipated discharge place: Pending clinical course Anticipated discharge time: Pending clinical course Patient was seen independently by Nurse Pracitioner. This document was prepared using [employer] dictation software. Please allow for errors in brush holder inspector, while rare they do occur. Objective - Vital Signs Vital signs: Vital Signs Temp 97.5 F L 03/08/23 08:27 Pulse 51 L 03/08/23 08:27 Resp 20 03/08/23 08:27 BP 113/63 03/08/23 08:27 Pulse Ox 95 03/08/23 08:27 FiO2 Intake & Output 03/07/23 03/08/23 03/08/23 18:59 06:59 18:59 Intake Total 938 Balance 938 Intake: Oral 938 Other: Voiding Method Toilet Toilet Urinal Urinal External Catheter External Catheter # Voids 2 1 # Bowel Movements 2 - Labs CBC & Chem 7: 03/08/23 09:02 03/08/23 09:02 Labs: Abnormal Lab Results - Last 24 Hours (Table) 03/07/23 03/07/23 03/07/23 Range/Units 08:12 08:12 08:12 RBC 4.15 L (4.30-5.90) m/uL Hgb 11.8 L (13.0-17.5) gm/dL Hct 38.1 L (39.0-53.0) % MCHC 30.9 L (31.0-37.0) g/dL RDW 17.3 H (11.5-15.5) % Lymphocytes # 0.9 L (1.0-4.8) k/uL BUN 36 H (9-20) mg/dL Creatinine 1.27 H (0.66-1.25) mg/dL Glucose 123 H (74-99) mg/dL Procalcitonin 0.29 H (0.02-0.09) ng/mL
--- NOTE | 2023-03-08 13:13 | P.PN ---
Subjective Progress Note Date: 03/08/23 Principal diagnosis: Atrial fibrillation with RVR. This is an 78-year-old white male with history of multiple medical problems including coronary artery disease, COPD, peripheral vessel occlusive disease, hiatal hernia, abdominal aortic aneurysm requiring repair, back surgery and knee replacement, 63-kpui-ledt smoking history, patient presented to the ER on 03/02/2023, mostly his presentation was presentation of atrial fibrillation with RVR. Apparently the patient was seen by his primary care physician that day, and EKG was abnormal. Hence he was sent to ER. His initial presentation to the primary care was mostly a presentation of weakness, fatigue, pain in his lower extremities, and cannot stand on his feet. Patient had no symptoms of shortness of breath or chest pain at this time. Upon evaluation in the ER, patient was found to have atrial fibrillation with RVR, chest x-ray questioned a right lower lobe pneumonia, although the patient had no symptoms to suggest pneumonia had no fever, no chills, he does have occasional chronic cough. No hemoptysis and no chest pain. Cardiology was consulted on this patient, and he was treated with Cardizem drip Lopressor, and heparin. Again his initial chest x-ray showed a right lower lobe consolidation with air bronchogram, and follow-up chest x-ray showed bibasilar opacities with minimal improvement of the right lung consolidation. Clinically, the patient had no symptoms to suggest pneumonia. Patient had no leukocytosis, no fever no chills, no hemoptysis, and his pro- calcitonin level is pending considering the abnormal chest x-ray findings this consult was initiated patient is receiving ceftriaxone empirically, he is also on bronchodilators for underlying COPD patient is receiving also diuretics intermittently. Echocardiogram showed moderate LV dysfunction with ejection fraction in the 40% range patient also noted to have mild aortic insufficiency and aortic sclerosis Progress note dated 03/08/2023. 78-year-old male seen yesterday in consultation. He has a history of multiple medical problems including coronary disease, COPD, peripheral vascular occlusive disease, hiatal hernia, abdominal aortic aneurysm, back surgery, knee replacement, 84-iwqh-meco history of tobacco use, among other things. He presented to the emergency department on March 02, with atrial fibrillation with RVR. The patient also had mental status changes. Currently, the patient is seen in room 375. He is on 3 L of oxygen. His pro-calcitonin level was 0.29. He is currently in normal sinus rhythm. Currently labs include a white count of 5.2, hemoglobin 10.7, hematocrit 34.9, and a platelet count of 157,000. Sodium 141, potassium 4, chlorides 110, CO2 24, BUN 37, creatinine 1.14. Chest x-ray suggests a right middle lobe pneumonia. There is some atelectasis at the left lung base. The patient is currently on ceftriaxone. Objective - Vital Signs Vital signs: Vital Signs Temp 97.4 F L 03/08/23 11:48 Pulse 63 03/08/23 11:48 Resp 20 03/08/23 11:48 BP 129/72 03/08/23 11:48 Pulse Ox 98 03/08/23 11:48 FiO2 Intake & Output 03/07/23 03/08/23 03/08/23 18:59 06:59 18:59 Intake Total 938 Balance 938 Weight 130 kg Intake: Oral 938 Other: Voiding Method Toilet Toilet Toilet Urinal Urinal Urinal External Catheter External Catheter # Voids 2 1 1 # Bowel Movements 2 - Exam No acute distress, oriented 3. No respiratory distress. Currently on 3 L of oxygen. HEENT examination is grossly unremarkable. Mucous membranes are moist. No oral lesions. Neck supple. Full range of motion. No adenopathy thyromegaly or neck vein distention. Cardiovascular examination reveals regular rhythm rate. S1-S2 normal. No S3 or S4. A 2/6 systolic murmur is noted. Lungs reveal scattered rhonchi and crackles. There are mild to moderate in severity. Breath sounds are equal bilaterally. Saturations are 98% on 3 L. Abdomen soft bowel sounds are heard. No masses or tenderness. Extremities are intact. No cyanosis clubbing or edema. Skin is without rash or lesion. Neurologic examination is brief but nonfocal. - Labs CBC & Chem 7: 03/08/23 09:02 03/08/23 09:02 Labs: Abnormal Lab Results - Last 24 Hours (Table) 03/07/23 03/08/23 03/08/23 Range/Units 08:12 09:02 09:02 RBC 3.77 L (4.30-5.90) m/uL Hgb 10.7 L (13.0-17.5) gm/dL Hct 34.9 L (39.0-53.0) % MCHC 30.6 L (31.0-37.0) g/dL RDW 17.4 H (11.5-15.5) % Chloride 110 H (98-107) mmol/L BUN 37 H (9-20) mg/dL Procalcitonin 0.29 H (0.02-0.09) ng/mL Assessment and Plan Assessment: Acute hypoxemic respiratory failure, multifactorial, secondary to COPD exacerbation, atrial fibrillation/RVR, and pneumonia. New onset atrial fibrillation with RVR. Cardiomyopathy and LV dysfunction, with an ejection fraction of 40%. Acute exacerbation of chronic obstructive pulmonary disease. Possible pneumonia, right middle lobe. Previous history of 29-xqth-yjoe tobacco use. Peripheral vascular occlusive disease, with chronic lower extremity pain and weakness. Elevated troponins, being evaluated by cardiology. Plan: Plan dated 03/08/2023. Currently, the patient's getting breathing treatments with albuterol sulfate and ipratropium bromide. The patient continues on ceftriaxone. The patient's also receiving his usual medications, including Lasix, and other cardiac medications, and is currently on Eliquis. We will continue to follow make recommendations along the way. He is currently in sinus rhythm. His mental status is improvi ng. Prognosis is guarded. Time with Patient: Less than 30
[2023-03-08] MEDS: LOSARTAN 25 MG TAB PO SCH (16:46)
[2023-03-08] MEDS: CLOPIDOGREL 75 MG TAB PO SCH (21:44)
[2023-03-08] MEDS: FINASTERIDE 5 MG TAB PO SCH (21:44)
[2023-03-08] MEDS: allopurinoL 300 MG TAB PO SCH (21:44)
[2023-03-08] MEDS: ATORVASTATIN 80 MG TAB PO SCH (21:44)
[2023-03-09] MEDS: TAMSULOSIN 0.4 MG CAP.ER.24H PO SCH ×2 (08:13→20:53)
[2023-03-09] MEDS: APIXABAN 5 MG TAB PO SCH (08:13)
[2023-03-09] MEDS: METOPROLOL TARTRATE 50 MG TAB PO SCH ×2 (08:13→20:53)
[2023-03-09] MEDS ORDERED: ALPRAZolam 0.25 MG TAB PO PRN (10:53)
[2023-03-09] MEDS ORDERED: NITROGLYCERIN SL TABS 0.4 MG TAB SUBLINGUAL PRN (10:53)
[2023-03-09] MEDS ORDERED: ALPRAZolam 0.5 MG TAB PO PRN (10:53)
[2023-03-09] MEDS: LOSARTAN 25 MG TAB PO SCH (11:06)
[2023-03-09] MEDS: FUROSEMIDE 40 MG TAB PO SCH (11:07)
--- NOTE | 2023-03-09 13:01 | P.PN ---
Subjective Progress Note Date: 03/09/23 Hospital course: Patient is a very pleasant 78-year-old male with a past medical history of peripheral vascular disease, CAD, hypertension, hyperlipidemia, AAA status post repair, and ASD. Patient presented to the emergency department on 03/02/23 from [facility] where patient initially presented with a chief complaint of shortness of breath and dizziness. Patient underwent evaluation there and was found to have atrial fibrillation with RVR at 118 bpm and a troponin of 0.3406 she was transferred to our facility for further evaluation, admission, and evaluation by icu manager. Upon arrival to our facility repeat troponin was 0.371. Patient was admitted under services of consultation to cardiology and pulmonology. Influenza A, and for the B, C, and Covid PCR's were negative. Echocardiogram was completed revealing reduced EF of 40% with reported enlarged atria and mitral annular calcification with moderate mitral regurgitation and aortic valve sclerosis with mild aortic insufficiency and small pericardial effusion globally. Repeat X-ray completed 03/08/23 showing right middle lobe infiltrate with platelike atelectasis at left lung base. Physical exam: Patient seen and fully evaluated at the bedside. Patient is alert and oriented 4 this morning. He currently denies having any complaints or concerns at this time. Vital signs reviewed and stable. General: Nontoxic, no distress and appears stated age. Derm: Skin warm and dry, normal coloration for ethnicity. Head: Atraumatic, normocephalic and symmetric. Eyes: EOMs intact, no lid lag, and anicteric sclera Mouth: no lip lesions, mucus membranes moist Cardiovascular: regular rate and rhythm with normal S1S2, systolic murmur, positive posterior tibial pulses bilaterally, and cap refill < 2 seconds. Lungs: Respirations even, regular, and unlabored on room air. Lungs slightly diminished, no rhonchi, rales, wheezes, or crackles noted upon auscultation. Abdominal: soft, nontender to palpation, no guarding, no appreciable organomegaly Ext: ROM intact. No gross muscle atrophy, no edema, no contractures Neuro: Speech clear, face symmetrical and CN II-XII grossly intact with no noted focal neuro deficits Psych: Alert and oriented to person, place, time, and situation. Appropriate and pleasant. Assessment and Plan of Care: Non-ST elevation CA, likely type II Systolic cardiomyopathy with EF of 40%, unclear if ischemic vs nonischemic Pericardial effusion Atrial fibrillation with RVR, now with controlled ventricular rate History of CAD History of peripheral arterial disease History of AAA status post repair History of ASD -Cardiology following, planning to take patient for cardiac catheterization 03/10/23 -Patient to continue with cardiac medication regimen with Eliquis 5 mg twice daily, atorvastatin 80 mg nightly, Plavix 75 mg nightly, and losartan 12.5 mg daily. -Continue telemetry monitoring -ProBNP 17,000. - Consult vascular surgery Liver lesions - consider oncology consult as inpatient vs outpatient Bacterial pneumonia, aspiration versus community-acquired Acute encephalopathy, likely delirium. Acute Hypoxic respiratory failure, resolved -Pulmonology following and discussed plan of care with field marketing specialist Dr. Lewis. -Continue scheduled duo nebs 4 times a day and as needed for shortness of breath and/or wheezing. -Continue supplemental oxygen as needed to maintain SpO2 equal to or greater than 92%. Patient currently on 3 L O2 via nasal cannula with SpO2 of 95%. -Completed 3 day course of azithromycin and currently on day 5 of 5 of IV antibiotics with Rocephin 2 g daily. -Sputum cultures pending -Speech therapy consulted for swallow eval and appreciate recommendations. Debility -Physical therapy following recommending home with homecare versus subacute rehab Hypokalemia, resolved BPH -Continue Flomax 0.4 mg twice daily. Gout Continue allopurinol 300 mg nightly. Data and imaging reviewed: ProBNP 17,000 Vital signs reviewed, blood pressure 129/81, heart rate 78, respiratory rate 18, temp 97.5F, SpO2 of 94% on room air. DVT ppx: Eliquis Code status: Full code Anticipated discharge place: Pending clinical course Anticipated discharge time: Pending clinical course Patient was seen independently by Nurse Pracitioner. This document was prepared using [employer] dictation software. Please allow for errors in cylinder steamer, while rare they do occur. Glenn Justice NP rendered care for this patient independently, reviewed the findings and plan as documented in the note above. I did not physically speak with or examine the patient on this date. Consult vascular surgery. Awaiting call back Objective - Vital Signs Vital signs: Vital Signs Temp 98.1 F 03/09/23 04:10 Pulse 48 L 03/09/23 04:10 Resp 20 03/09/23 04:10 BP 139/78 03/09/23 04:10 Pulse Ox 92 L 03/09/23 04:10 FiO2 Intake & Output 03/08/23 03/09/23 03/09/23 18:59 06:59 18:59 Intake Total 120 90 Output Total 300 Balance -180 90 Weight 130 kg Intake: Oral 120 90 Output: Urine 300 Other: Voiding Method Toilet Toilet Urinal Urinal # Voids 1 1 # Bowel Movements 1 - Labs CBC & Chem 7: 03/08/23 09:02 03/08/23 09:02 Labs: Abnormal Lab Results - Last 24 Hours (Table) 03/08/23 03/08/23 Range/Units 09:02 09:02 RBC 3.77 L (4.30-5.90) m/uL Hgb 10.7 L (13.0-17.5) gm/dL Hct 34.9 L (39.0-53.0) % MCHC 30.6 L (31.0-37.0) g/dL RDW 17.4 H (11.5-15.5) % Chloride 110 H (98-107) mmol/L BUN 37 H (9-20) mg/dL
--- NOTE | 2023-03-09 13:55 | P.PN ---
Subjective HISTORY OF PRESENT ILLNESS: This is an 78-year-old male with past medical history of atrial septal defect, peripheral vascular disease status post AAA repair, coronary artery disease with stent, tobacco use and dependence. Patient states he quit smoking 1 month ago and has no alcohol intake. We have been asked to evaluate the patient for new onset atrial fibrillation. Patient states that he initially went to his PCP for weakness and weight loss he was then sent to the local hospital for evaluation and transfer to [facility] for A. fib new onset. Patient is status post adenosine and subsequently Cardizem drip and heparin drip. Patient is seen today in the emergency center waiting for a bed on the cardiac stepdown unit. Patient also states that he has shortness of breath with minimal activity and a chronic coug h. He has lower extremity edema. No chest pain. EKG atrial fibrillation with PVCs Echocardiogram reveals EF of 40%. Moderate mitral regurgitation. Aortic valve sclerosis with mild aortic insufficiency. WBC 6, hemoglobin 11.3, platelet count 150. Sodium 139, potassium 3.5, BUN 24 and creatinine 0.9. Troponin 0.371 and 0.366. Home cardiac medications: Plavix 75 mg daily, Avodart 0.5 mg at bedtime. 03/04 Seen today on the cardiac stepdown unit. Telemetry is atrial fibrillation running around 107 bpm. Patient remains on Cardizem drip at 2.5 mg per hour and was started on Lopressor 50 mg twice daily yesterday. He is also maintained on heparin drip. Heart rate is in the 60s to 80s, blood pressure 134/88, pulse ox 98% on 2 L nasal cannula. Repeat blood work reveals hemoglobin 10.6, platelet count 145. BUN 25 creatinine 1.06. Potassium 3.9. 03/05 Telemetry is atrial fibrillation running between 76 and 110. Patient is currently maintained on Lopressor 75 mg twice daily and Cardizem drip was discontinued yesterday afternoon. Losartan was also added yesterday for blood pressure control. 03/07/2023 Patient is a pleasant 78-year-old male with multiple comorbid conditions who presented to the hospital with primary weakness. Patient was in A. fib with RVR, and started on adenosine and Cardizem drip. Oral beta blockers were started and the patient was weaned off his Cardizem drip, his atrial fibrillation has been brought under control and the patient is currently in A. fib with controlled response. Patient demonstrated mildly elevated troponins which are likely secondary to demand ischemia, however it's unsure if the patient actually has blockages or not. Patient had a run of ventricular tachycardia 2 nights ago, which gives us further indication that there could be possible blockage. Patient was asymptomatic during the run of ventricular tachycardia. Today we note the patient has had no further runs of V. tach overnight. Patient remains somewhat short of breath while at rest. He otherwise denies chest pain, heart palpitations, nausea, dizziness, and syncopal episodes. 03/08/2023 Issue examined this morning at the bedside. Patient is confused at the time of examination. He currently denies chest pain or pressure. He denies shortness of breath. Telemetry reveals atrial fibrillation with a heart rate in the 50s and frequent PVCs. 03/09/2023 Patient examined this morning at the bedside. Patient remains confused although appears improved from yesterday. He denies chest pain or pressure. He denies shortness of breath. Vital signs are stable. Telemetry reveals atrial fibrillation with controlled ventricular rate PHYSICAL EXAM: VITAL SIGNS: Reviewed. GENERAL: Well-developed in no acute distress. NECK: Supple. No JVD or thyromegaly LUNGS: Respirations even and unlabored. Lungs essentially clear to auscultation bilaterally. HEART: Irregular rate and rhythm. S1 and S2 heard. EXTREMITIES: Normal range of motion. No clubbing or cyanosis. Peripheral pulses intact. No lower extremity edema ASSESSMENT: New-onset paroxysmal atrial fibrillation with RVR, currently rate controlled Nonsustained ventricular tachycardia New-onset cardiomyopathy, EF 40%, ischemic versus nonischemic Acute heart failure with reduced EF Possible bibasilar pneumonia Altered mental status Hypertension Former nicotine dependence, patient quit smoking 1 month ago PLAN: Begin oral Lasix 40 mg daily Continue additional cardiac medications Continue telemetry monitoring Hold Eliquis tonight and tomorrow morning Nothing by mouth midnight Patient tentatively scheduled for cardiac catheterization tomorrow with Dr. Hoover Repeat kidney function in a.m. Further recommendations pending patient's course Nurse practitioner note has been reviewed by physician. Signing provider agrees with the documented findings, assessment, and plan of care. Objective - Vital Signs Vital signs: Vital Signs Temp 97.5 F L 03/09/23 08:00 Pulse 68 03/09/23 11:42 Resp 16 03/09/23 11:42 BP 131/82 03/09/23 11:42 Pulse Ox 96 03/09/23 11:42 FiO2 Intake & Output 03/08/23 03/09/23 03/09/23 18:59 06:59 18:59 Intake Total 120 90 358 Output Total 300 Balance -180 90 358 Weight 130 kg Intake: Oral 120 90 358 Output: Urine 300 Other: Voiding Method Toilet Toilet Toilet Urinal Urinal Urinal # Voids 1 1 1 # Bowel Movements 1 - Labs CBC & Chem 7: 03/08/23 09:02 03/08/23 09:02
--- NOTE | 2023-03-09 16:34 | P.PN ---
Subjective Progress Note Date: 03/09/23 Principal diagnosis: Atrial fibrillation with RVR. This is an 78-year-old white male with history of multiple medical problems including coronary artery disease, COPD, peripheral vessel occlusive disease, hiatal hernia, abdominal aortic aneurysm requiring repair, back surgery and knee replacement, 30-joyb-wyag smoking history, patient presented to the ER on 03/02/2023, mostly his presentation was presentation of atrial fibrillation with RVR. Apparently the patient was seen by his primary care physician that day, and EKG was abnormal. Hence he was sent to ER. His initial presentation to the primary care was mostly a presentation of weakness, fatigue, pain in his lower extremities, and cannot stand on his feet. Patient had no symptoms of shortness of breath or chest pain at this time. Upon evaluation in the ER, patient was found to have atrial fibrillation with RVR, chest x-ray questioned a right lower lobe pneumonia, although the patient had no symptoms to suggest pneumonia had no fever, no chills, he does have occasional chronic cough. No hemoptysis and no chest pain. Cardiology was consulted on this patient, and he was treated with Cardizem drip Lopressor, and heparin. Again his initial chest x-ray showed a right lower lobe consolidation with air bronchogram, and follow-up chest x-ray showed bibasilar opacities with minimal improvement of the right lung consolidation. Clinically, the patient had no symptoms to suggest pneumonia. Patient had no leukocytosis, no fever no chills, no hemoptysis, and his pro- calcitonin level is pending considering the abnormal chest x-ray findings this consult was initiated patient is receiving ceftriaxone empirically, he is also on bronchodilators for underlying COPD patient is receiving also diuretics intermittently. Echocardiogram showed moderate LV dysfunction with ejection fraction in the 40% range patient also noted to have mild aortic insufficiency and aortic sclerosis Progress note dated 03/08/2023. 78-year-old male seen yesterday in consultation. He has a history of multiple medical problems including coronary disease, COPD, peripheral vascular occlusive disease, hiatal hernia, abdominal aortic aneurysm, back surgery, knee replacement, 97-xnwq-[id number] history of tobacco use, among other things. He presented to the emergency department on March 02, with atrial fibrillation with RVR. The patient also had mental status changes. Currently, the patient is seen in room 375. He is on 3 L of oxygen. His pro-calcitonin level was 0.29. He is currently in normal sinus rhythm. Currently labs include a white count of 5.2, hemoglobin 10.7, hematocrit 34.9, and a platelet count of 157,000. Sodium 141, potassium 4, chlorides 110, CO2 24, BUN 37, creatinine 1.14. Chest x-ray suggests a right middle lobe pneumonia. There is some atelectasis at the left lung base. The patient is currently on ceftriaxone. Progress note dated 03/09/2023. 78-year-old male seen in consultation 2 days ago. He's seen again today in room 375. The patient is currently on room air. Saturations 96%. The patient is not receiving any IV fluids. According to his nurse, he is scheduled for heart catheterization tomorrow. No new laboratory data from today. Labs from yesterday, have been reviewed. Please see the note above. Objective - Vital Signs Vital signs: Vital Signs Temp 98.2 F 03/09/23 15:56 Pulse 61 03/09/23 15:56 Resp 18 03/09/23 15:56 BP 130/87 03/09/23 15:56 Pulse Ox 95 03/09/23 15:56 FiO2 Intake & Output 03/08/23 03/09/23 03/09/23 18:59 06:59 18:59 Intake Total 120 90 358 Output Total 300 Balance -180 90 358 Weight 130 kg Intake: Oral 120 90 358 Output: Urine 300 Other: Voiding Method Toilet Toilet Toilet Urinal Urinal Urinal # Voids 1 1 1 # Bowel Movements 1 1 - Exam No acute distress, oriented 3. No respiratory distress. Currently on room air. HEENT examination is grossly unremarkable. Mucous membranes are moist. No oral lesions. Neck supple. Full range of motion. No adenopathy thyromegaly or neck vein distention. Cardiovascular examination reveals regular rhythm rate. S1-S2 normal. No S3 or S4. A 2/6 systolic murmur is noted. Heart rate 61 bpm. Lungs reveal scattered rhonchi and crackles. There are mild to moderate in severity. Breath sounds are equal bilaterally. Saturations are 95% on room air. Abdomen soft bowel sounds are heard. No masses or tenderness. Extremities are intact. No cyanosis clubbing or edema. Skin is without rash or lesion. Neurologic examination is brief but nonfocal. - Labs CBC & Chem 7: 03/08/23 09:02 03/08/23 09:02 Assessment and Plan Assessment: Acute hypoxemic respiratory failure, multifactorial, secondary to COPD exacerbation, atrial fibrillation/RVR, and pneumonia. New onset atrial fibrillation with RVR. Anticipated heart catheterization, 03/10/2023. Cardiomyopathy and LV dysfunction, with an ejection fraction of 40%. Acute exacerbation of chronic obstructive pulmonary disease. Possible pneumonia, right middle lobe. Previous history of [id number]-uxgp tobacco use. Peripheral vascular occlusive disease, with chronic lower extremity pain and weakness. Elevated troponins, being evaluated by cardiology. Plan: Plan dated 03/08/2023. Currently, the patient's getting breathing treatments with albuterol sulfate and ipratropium bromide. The patient continues on ceftriaxone. The patient's also receiving his usual medications, including Lasix, and other cardiac medications, and is currently on Eliquis. We will continue to follow make recommendations along the way. He is currently in sinus rhythm. His mental status is improving. Prognosis is guarded. Plan dated 03/09/2023. The patient is currently on room air. He's not receiving any IV fluids. Accor ding to his nurse, the patient is scheduled to have an heart catheterization tomorrow. Labs, x-rays, and medications are reviewed. The patient appears be much more stable, and Angus much more awake and alert. Additional recommendations and suggestions are forthcoming. Prognosis is guarded. Time with Patient: Less than 30
[2023-03-09] MEDS: allopurinoL 300 MG TAB PO SCH (20:53)
[2023-03-09] MEDS: FINASTERIDE 5 MG TAB PO SCH (20:53)
[2023-03-09] MEDS: ATORVASTATIN 80 MG TAB PO SCH (20:53)
[2023-03-09] MEDS: CLOPIDOGREL 75 MG TAB PO SCH (20:53)
--- NOTE | 2023-03-09 22:18 | CT ---
EXAMINATION TYPE: CT angio abdomen pelvis CT DLP: 2177.6 mGycm, Automated exposure control for dose reduction was used. DATE OF EXAM: 03/09/2023 9:59 PM COMPARISON: CT with 03/07/2023 CLINICAL INDICATION:Male, 78 years old with history of AAA TECHNIQUE: Multiple thin slice sub-millimeter images were obtained after administration of contrast. 3-D reconstructed images and maximum intensity projection images were obtained. CT angio abdomen pel vis CT Contrast: Contrast used:160 ml mL of Isovue 370 with IV Contrast, Oral contrast used: without Oral Contrast None FINDINGS: CTA Abdomen and pelvis: Aortobiiliac stent graft is present with excluded lumen measuring up to 8.0 x 6.6 cm at the bifurcati on. No evidence for endoleak on arterial phase imaging. The origins of the celiac axis, the superior mesenteric artery and bilateral renal arteries appear patent. No evidence for dissection. Scattered m ild atherosclerosis of the arterial vasculature. Embolization material within the left internal iliac artery with occlusion. No additional evidence for occlusion. The external iliac arteries bilaterally are patent. The visualized portions of the common femoral and superficial femoral arteries are paten t. LOWER CHEST: Bilateral pleural effusions with associated atelectasis. Mild bronchiectasis surrounding the right perihilar region. Heart is mildly enlarged for size. LIVER: Multiple hepatic lesions are seen throughout the liver. Largest in the left hepatic lobe measu ring 6.8 x 5.8 in the right hepatic lobe. GALLBLADDER AND BILE DUCTS: Unremarkable. PANCREAS: Unremarkable. SPLEEN: Scattered calcified granulomas. ADRENAL GLANDS: Unremarkable. KIDNEYS AND URETERS: No evidence of hydronephrosis or renal calculus. The ureters are unremarkable. PELVIS BLADDER: Unremarkable REPRODUCTIVE: Unremarkable. ABDOMEN & PELVIS STOMACH AND BOWEL: There is a large hiatal hernia present. No evidence of bowel obstruction. Scattere d colonic diverticula. PERITONEUM: No evidence of pneumoperitoneum or free fluid. MUSCULOSKELETAL: Moderate disc degeneration changes are present throughout the thoracolumbar spine. L eft hip arthroplasty appears intact. LYMPH NODES: No gross evidence for lymphadenopathy. SOFT TISSUE/ABDOMINAL WALL: Unremarkable IMPRESSION 1. Aortobiiliac stent graft without evidence for endoleak. 2. No evidence for occlusion. 3. Scattered mild atherosclerosis of the arterial vasculature. 4. Left internal iliac embolization coils. Redemonstration of multiple hepatic masses suggestive of metastatic disease. 5. Cardiomegaly. 6. Small bilateral pleural effusions with associated atelectasis. 7. Large hiatal hernia.
[2023-03-10] MEDS ORDERED: ASPIRIN 325 MG TAB PO ONE (05:00)
[2023-03-10] MEDS ORDERED: ATORVASTATIN 80 MG TAB PO ONE (05:00)
[2023-03-10] MEDS: FUROSEMIDE 40 MG TAB PO SCH (06:28)
[2023-03-10] MEDS: TAMSULOSIN 0.4 MG CAP.ER.24H PO SCH ×2 (06:28→20:09)
[2023-03-10] MEDS: METOPROLOL TARTRATE 50 MG TAB PO SCH ×2 (06:28→20:09)
[2023-03-10] MEDS: SODIUM CHLORIDE 0.9% 1,000 ML in EMPTY BAG 1 BAG IV SCH ×3 (06:29→20:10)
[2023-03-10] MEDS ORDERED: HEPARIN SODIUM,PORCINE 10,000 UNIT in SODIUM CHLORIDE 0.9% 1,000 ML IRRIGATION PRN (07:00)
[2023-03-10] MEDS ORDERED: HEPARIN SODIUM,PORCINE (1 ML) 2,500 UNIT in SODIUM CHLORIDE 0.9% 250 ML IRRIGATION PRN (07:00)
[2023-03-10 08:51] LABS: Anisocytosis Slight; HCT 35.3 % (39.0-53.0); HGB 10.8 gm/dL (13.0-17.5); Hypochromasia Marked; MCH 27.5 pg (25.0-35.0); MCHC 30.7 g/dL (31.0-37.0); MCV 89.5 fL (80.0-100.0); Mean Platelet Volume 10.8; Platelet Count 176 k/uL (150-450); RBC 3.94 m/uL (4.30-5.90); WBC 5.2 k/uL (3.8-10.6)
[2023-03-10 09:26] LABS: ALT 34 U/L (4-49); AST 70 U/L (17-59); African American GFR (CKD) 75 (>60 ml/min/1.73 sqM); Albumin 2.4 g/dL (3.5-5.0); Alkaline Phosphatase 178 U/L (38-126); Anion Gap 7 mmol/L; Blood Urea Nitrogen 27 mg/dL (9-20); Calcium 8.4 mg/dL (8.4-10.2); Carbon Dioxide 28 mmol/L (22-30); Chloride 106 mmol/L (98-107); Glucose 91 mg/dL (74-99); Magnesium 1.7 mg/dL (1.6-2.3); Non-African American GFR(CKD) 64 (>60 ml/min/1.73 sqM); Potassium 3.5 mmol/L (3.5-5.1); Sodium 141 mmol/L (137-145); Total Bilirubin 0.5 mg/dL (0.2-1.3); Total Protein 5.5 g/dL (6.3-8.2)
--- NOTE | 2023-03-10 10:28 | P.GSCN ---
History of Present Illness Consult date: 03/10/23 Reason for Consult: AAA 8.1 cm with previous stent graft Requesting physician: Glenn Justice History of present illness: This a pleasant 78-year-old male who presented to the emergency department as a transfer from outside hospital for atrial fibrillation with RVR on 03/02/2023. Patient had gone to see his PCP and was complaining of weakness, shortness of breath and was noted to have tachycardia and was sent to the emergency department. From there he was noted to have A. fib with RVR, new onset and transferred to this hospital for further cardiac evaluation. His past medical history includes atrial septal defect, coronary artery disease, peripheral vascular disease, infrarenal abdominal aortic aneurysm repair with stent graft, EtOH abuse, tobacco abuse, and COPD. Who patient had chest x-ray that had showed basilar opacities, right and the worse than the left. Pulmonology was consulted ordered CTA of the chest which reported large infrarenal AAA measuring 8.1 cm with previous endovascular abdominal aortic graft advise comparison and vascular consult. Yesterday patient underwent CTA abdomen/pelvis that reported aortobiiliac stent graft without evidence for endoleak. Left internal iliac embolization with occlusion. Therefore vascular surgery was consulted. Patient states he had his endograft repair about [address] francois. He has not followed with a vascular surgeon since that time. He denies any abdominal pain, back pain, chest pain shortness of breath has improved. He does state he has bilateral lower extremity pain both at rest and with ambulation. He states he quit smoking 4 years ago and quit drinking in 1995. He is scheduled to undergo cardiac catheterization today. Home meds did include Plavix 75 mg daily, he is now been started on Ahlquist 5 mg by mouth twice a day as well as a atorvastatin 80 mg at bedtime. Review of Systems A 14 point review systems was completed all pertinent positives and negatives as stated in the HPI. Past Medical History Additional Past Medical History / Comment(s): Atrail septal defect, atherosclerosis, CAD, GERD, Gout, PVD, History of Any Multi-Drug Resistant Organisms: None Reported Past Surgical History: Appendectomy, Heart Catheterization With Stent, Hernia Repair, Orthopedic Surgery Additional Past Surgical History / Comment(s): AAA repair, back surgery,L knee replacement, Date of Last Stent Placement:: n/a Past Psychological History: No Psychological Hx Reported Smoking Status: Former smoker Past Alcohol Use History: Occasional Past Drug Use History: None Reported Medications and Allergies Home Medications Medication Instructions Recorded Confirmed Type Clopidogrel [Plavix] 75 mg PO HS 03/02/23 03/02/23 History Dutasteride [Avodart] 0.5 mg PO HS 03/02/23 03/02/23 History Tamsulosin HCl [Flomax] 0.4 mg PO BID 03/02/23 03/02/23 History allopurinoL [Zyloprim] 300 mg PO HS 03/02/23 03/02/23 History Apixaban [Eliquis] 5 mg PO BID #180 tab 03/04/23 Rx Allergies Allergy/AdvReac Type Severity Reaction Status Date / Time aspirin Allergy Rash/Hives Verified 03/02/23 18:02 ibuprofen Allergy Rash/Hives Verified 03/02/23 18:02 Surgical - Exam Vital Signs Temp Pulse Resp BP Pulse Ox 97.9 F 115 H 18 131/91 96 03/02/23 16:42 03/02/23 16:42 03/02/23 16:42 03/02/23 16:42 03/02/23 16:42 General appearance: The patient is alert, oriented, appears in no acute distress. HET: Head is normocephalic and atraumatic. Neck: Supple. Heart:Irregular. Lungs: Equal expansion, normal respiratory effort. Diminished on the right. Abdomen: Soft, nontender, nondistended. Extremities: Normal skin color and turgor. Palpable bilateral radial pulses. Palpable bilateral femoral, PT and DP pulses. Good capillary refill and warm to touch. Neurological: No focal deficits. Alert and oriented. Results - Labs 03/10/23 08:19 03/10/23 08:19 - Imaging Comments: Abdomen and pelvis CT angiogram: Aorto biiliac stent graft without evidence for endoleak. No evidence for occ lusion. Scattered mild arthrosclerosis of the arterial vasculature. Left internal iliac embolization coils. Redemonstration of multiple hepatic masses suggestive of metastatic disease. Cardiomegaly. Small bilateral pleural effusions with associated atelectasis. Large hiatal hernia. Chest CT angiogram: 1. Moderate right and small left pleural effusion along with generalized anasarca change. Borderline cardiomegaly and pulmonary arterial hypertension. Correlate for fluid overload state/mild CHF. Patchy airspace disease and volume loss throughout the basilar right lower lobe. Correlate for possible underlying pneumonia. Complete atelectatic collapse right middle lobe. Very large infrarenal AAA measuring 8.1 cm. Previous endovascular abdominal aortic graft. Advise comparison to any available outside priors to determine any change in size of the [place] sac. Findings are concerning given heterogeneous density within the [place] sac. Vascular surgery evaluation should be cons idered. Called to nurse Victorino on 3 S. card at 4:43 PM. Multiple hepatic masses measuring up to 6.3 cm suggesting metastatic disease. Enlarged left periaortic lymph node at 2.7 cm. Correlate for any known oncologic history. Chest x-ray: report reviewed (Right middle lobe infiltrate. Correlate for pneumonia. Platelike atelectasis left base.) Assessment and Plan Assessment: 1. Asymptomatic 8 cm abdominal aortic aneurysm status post aorto iliac stent graft with no evidence of endoleak 2. History of abdominal aortic aneurysm status post endograft repair approximately 7-8 years ago 3. Atrial fibrillation with RVR, new onset 4. COPD exacerbation 5. Possible pneumonia 6. History of peripheral vascular disease 7. Cardiomyopathy and LV dysfunction with EF of 40% 8. Former smoker Plan: CTA abdomen pelvis reviewed. Patient is asymptomatic, new onset atrial fibrillation. He was scheduled to undergo cardiac catheterization today, however has been canceled with no plans on doing one. There is no indication for any emergent/urgent vascular surgical intervention at this time. Patient is recommended to follow-up in the outpatient setting with vascular surgery. He does state that he would like to follow-up with somebody closer to where he lives in [place], [place]. Recommend follow-up for suspected liver metastasis as well. Patient's daughter Fadumo notified of need for outpatient follow up, she states she will call his surgeon and set up appointment. Continue with rest of medical management per primary medical team and continue with recommendations from cardiology. Thank you for for this consultation. We will sign off at this time. The impression and plan of care has been dictated as directed. I performed a history and examination of this patient, discussed the same with the dictator. I agree with the dictator's note ,documented as a scribe. Any additional findings or plans will be noted.
[2023-03-10] MEDS: LOSARTAN 25 MG TAB PO SCH (11:12)
--- NOTE | 2023-03-10 12:18 | P.PN ---
Subjective HISTORY OF PRESENT ILLNESS: This is an 78-year-old male with past medical history of atrial septal defect, peripheral vascular disease status post AAA repair, coronary artery disease with stent, tobacco use and dependence. Patient states he quit smoking 1 month ago and has no alcohol intake. We have been asked to evaluate the patient for new onset atrial fibrillation. Patient states that he initially went to his PCP for weakness and weight loss he was then sent to the local hospital for evaluation and transfer to [facility] for A. fib new onset. Patient is status post adenosine and subsequently Cardizem drip and heparin drip. Patient is seen today in the emergency center waiting for a bed on the cardiac stepdown unit. Patient also states that he has shortness of breath with minimal activity and a chronic coug h. He has lower extremity edema. No chest pain. EKG atrial fibrillation with PVCs Echocardiogram reveals EF of 40%. Moderate mitral regurgitation. Aortic valve sclerosis with mild aortic insufficiency. WBC 6, hemoglobin 11.3, platelet count 150. Sodium 139, potassium 3.5, BUN 24 and creatinine 0.9. Troponin 0.371 and 0.366. Home cardiac medications: Plavix 75 mg daily, Avodart 0.5 mg at bedtime. 03/04 Seen today on the cardiac stepdown unit. Telemetry is atrial fibrillation running around 107 bpm. Patient remains on Cardizem drip at 2.5 mg per hour and was started on Lopressor 50 mg twice daily yesterday. He is also maintained on heparin drip. Heart rate is in the 60s to 80s, blood pressure 134/88, pulse ox 98% on 2 L nasal cannula. Repeat blood work reveals hemoglobin 10.6, platelet count 145. BUN 25 creatinine 1.06. Potassium 3.9. 03/05 Telemetry is atrial fibrillation running between 76 and 110. Patient is currently maintained on Lopressor 75 mg twice daily and Cardizem drip was discontinued yesterday afternoon. Losartan was also added yesterday for blood pressure control. 03/07/2023 Patient is a pleasant 78-year-old male with multiple comorbid conditions who presented to the hospital with primary weakness. Patient was in A. fib with RVR, and started on adenosine and Cardizem drip. Oral beta blockers were started and the patient was weaned off his Cardizem drip, his atrial fibrillation has been brought under control and the patient is currently in A. fib with controlled response. Patient demonstrated mildly elevated troponins which are likely secondary to demand ischemia, however it's unsure if the patient actually has blockages or not. Patient had a run of ventricular tachycardia 2 nights ago, which gives us further indication that there could be possible blockage. Patient was asymptomatic during the run of ventricular tachycardia. Today we note the patient has had no further runs of V. tach overnight. Patient remains somewhat short of breath while at rest. He otherwise denies chest pain, heart palpitations, nausea, dizziness, and syncopal episodes. 03/08/2023 Issue examined this morning at the bedside. Patient is confused at the time of examination. He currently denies chest pain or pressure. He denies shortness of breath. Telemetry reveals atrial fibrillation with a heart rate in the 50s and frequent PVCs. 03/09/2023 Patient examined this morning at the bedside. Patient remains confused although appears improved from yesterday. He denies chest pain or pressure. He denies shortness of breath. Vital signs are stable. Telemetry reveals atrial fibrillation with controlled ventricular rate 03/10/2023 Patient examined this morning to bedside. Patient denies chest pain or pressure. He denies shortness of breath. Patient underwent CT revealing aortobiiliac graft present with excluded lumen measuring 8.0 x 6.6 cm at the bifurcation. No evidence for endoleak. Patient was also found to have multiple hepatic lesions with the largest measuring 6.8 x 5.8 in the right hepatic lobe. PHYSICAL EXAM: VITAL SIGNS: Reviewed. GENERAL: Well-developed in no acute distress. NECK: Supple. No JVD or thyromegaly LUNGS: Respirations even and unlabored. Lungs essentially clear to auscultation bilaterally. HEART: Irregular rate and rhythm. S1 and S2 heard. EXTREMITIES: Normal range of motion. No clubbing or cyanosis. Peripheral pulses intact. No lower extremity edema ASSESSMENT: New-onset paroxysmal atrial fibrillation with RVR, currently rate controlled Nonsustained ventricular tachycardia New-onset cardiomyopathy, EF 40%, ischemic versus nonischemic Acute heart failure with reduced EF Possible bibasilar pneumonia Altered mental status Hypertension Former nicotine dependence, patient quit smoking 1 month ago Multiple hepatic lesions Abdominal aortic aneurysm status post stenting with no evidence of endoleak PLAN: Continue current cardiac medications Patient has been seen by vascular surgery with no indications for intervention at this time Patient has been seen by oncology who apparently does not want to have further workup regarding his hepatic lesions Due to multiple and complex comorbidities including multiple hepatic lesions concerning for metastasis we will defer performing any cardiac catheterization during this hospitalization Further recommendations pending patient's course Nurse practitioner note has been reviewed by physician. Signing provider agrees with the documented findings, assessment, and plan of care. Objective - Vital Signs Vital signs: Vital Signs Temp 97.8 F 03/10/23 11:00 Pulse 78 03/10/23 11:00 Resp 18 03/10/23 11:00 BP 122/72 03/10/23 11:00 Pulse Ox 96 03/10/23 11:00 FiO2 Intake & Output 03/09/23 03/10/23 03/10/23 18:59 06:59 18:59 Intake Total 820 Balance 820 Intake: Oral 820 Other: Voiding Method Toilet Toilet Toilet Urinal Urinal Urinal # Voids 1 1 1 # Bowel Movements 1 1 - Labs CBC & Chem 7: 03/10/23 08:19 03/10/23 08:19 Labs: Abnormal Lab Results - Last 24 Hours (Table) 03/10/23 03/10/23 Range/Units 08:19 08:19 RBC 3.94 L (4.30-5.90) m/uL Hgb 10.8 L (13.0-17.5) gm/dL Hct 35.3 L (39.0-53.0) % MCHC 30.7 L (31.0-37.0) g/dL RDW 17.0 H (11.5-15.5) % BUN 27 H (9-20) mg/dL AST 70 H (17-59) U/L Alkaline Phosphatase 178 H (38-126) U/L Total Protein 5.5 L (6.3-8.2) g/dL Albumin 2.4 L (3.5-5.0) g/dL
--- NOTE | 2023-03-10 14:12 | P.PN ---
Subjective Progress Note Date: 03/10/23 Principal diagnosis: Atrial fibrillation with RVR. This is an 78-year-old white male with history of multiple medical problems including coronary artery disease, COPD, peripheral vessel occlusive disease, hiatal hernia, abdominal aortic aneurysm requiring repair, back surgery and knee replacement, [id number] smoking history, patient presented to the ER on 03/02/2023, mostly his presentation was presentation of atrial fibrillation with RVR. Apparently the patient was seen by his primary care physician that day, and EKG was abnormal. Hence he was sent to ER. His initial presentation to the primary care was mostly a presentation of weakness, fatigue, pain in his lower extremities, and cannot stand on his feet. Patient had no symptoms of shortness of breath or chest pain at this time. Upon evaluation in the ER, patient was found to have atrial fibrillation with RVR, chest x-ray questioned a right lower lobe pneumonia, although the patient had no symptoms to suggest pneumonia had no fever, no chills, he does have occasional chronic cough. No hemoptysis and no chest pain. Cardiology was consulted on this patient, and he was treated with Cardizem drip Lopressor, and heparin. Again his initial chest x-ray showed a right lower lobe consolidation with air bronchogram, and follow-up chest x-ray showed bibasilar opacities with minimal improvement of the right lung consolidation. Clinically, the patient had no symptoms to suggest pneumonia. Patient had no leukocytosis, no fever no chills, no hemoptysis, and his pro- calcitonin level is pending considering the abnormal chest x-ray findings this consult was initiated patient is receiving ceftriaxone empirically, he is also on bronchodilators for underlying COPD patient is receiving also diuretics intermittently. Echocardiogram showed moderate LV dysfunction with ejection fraction in the 40% range patient also noted to have mild aortic insufficiency and aortic sclerosis Progress note dated 03/08/2023. 78-year-old male seen yesterday in consultation. He has a history of multiple medical problems including coronary disease, COPD, peripheral vascular occlusive disease, hiatal hernia, abdominal aortic aneurysm, back surgery, knee replacement, [id number] history of tobacco use, among other things. He presented to the emergency department on March 02, with atrial fibrillation with RVR. The patient also had mental status changes. Currently, the patient is seen in room 375. He is on 3 L of oxygen. His pro-calcitonin level was 0.29. He is currently in normal sinus rhythm. Currently labs include a white count of 5.2, hemoglobin 10.7, hematocrit 34.9, and a platelet count of 157,000. Sodium 141, potassium 4, chlorides 110, CO2 24, BUN 37, creatinine 1.14. Chest x-ray suggests a right middle lobe pneumonia. There is some atelectasis at the left lung base. The patient is currently on ceftriaxone. Progress note dated 03/09/2023. 78-year-old male seen in consultation 2 days ago. He's seen again today in room 375. The patient is currently on room air. Saturations 96%. The patient is not receiving any IV fluids. According to his nurse, he is scheduled for heart catheterization tomorrow. No new laboratory data from today. Labs from yesterday, have been reviewed. Please see the note above. Progress note dated 03/10/2023. 78-year-old male, seen today in room 375. Patient continues on room air, and, it is not receiving any IV fluids. The patient was scheduled to have cardiac catheterization today. Currently, the patient appears to be doing better. White count 5.2, hemoglobin 10.8, hematocrit 35.3, with a normal platelet count. Sodium 141, potassium 3.5, chlorides 106, CO2 28, BUN 27, creatinine 1.08. ALT is 70. Albumin is 2.4. Previous pro-calcitonin level from March 07 was 0.29. Objective - Vital Signs Vital signs: Vital Signs Temp 97.8 F 03/10/23 11:00 Pulse 78 03/10/23 11:00 Resp 18 03/10/23 11:00 BP 122/72 03/10/23 11:00 Pulse Ox 96 03/10/23 11:00 FiO2 Intake & Output 03/09/23 03/10/23 03/10/23 18:59 06:59 18:59 Intake Total 820 240 Balance 820 240 Intake: Oral 820 240 Other: Voiding Method Toilet Toilet Toilet Urinal Urinal Urinal # Voids 1 1 1 # Bowel Movements 1 1 - Exam No acute distress, oriented 3. No respiratory distress. Currently on room air. HEENT examination is grossly unremarkable. Mucous membranes are moist. No oral lesions. Neck supple. Full range of motion. No adenopathy thyromegaly or neck vein distention. Cardiovascular examination reveals regular rhythm rate. S1-S2 normal. No S3 or S4. A 2/6 systolic murmur is noted. Heart rate 78 bpm. Lungs reveal scattered rhonchi and crackles. There are mild to moderate in severity. Breath sounds are equal bilaterally. Saturations are 96% on room air. Abdomen soft bowel sounds are heard. No masses or tenderness. Extremities are intact. No cyanosis clubbing or edema. Skin is without rash or lesion. Neurologic examination is brief but nonfocal. - Labs CBC & Chem 7: 03/10/23 08:19 03/10/23 08:19 Labs: Abnormal Lab Results - Last 24 Hours (Table) 03/10/23 03/10/23 Range/Units 08:19 08:19 RBC 3.94 L (4.30-5.90) m/uL Hgb 10.8 L (13.0-17.5) gm/dL Hct 35.3 L (39.0-53.0) % MCHC 30.7 L (31.0-37.0) g/dL RDW 17.0 H (11.5-15.5) % BUN 27 H (9-20) mg/dL AST 70 H (17-59) U/L Alkaline Phosphatase 178 H (38-126) U/L Total Protein 5.5 L (6.3-8.2) g/dL Albumin 2.4 L (3.5-5.0) g/dL Assessment and Plan Assessment: Acute hypoxemic respiratory failure, multifactorial, secondary to COPD exacerbation, atrial fibrillation/RVR, and pneumonia. New onset atrial fibrillation with RVR. Anticipated heart catheterization, 03/10/2023. Cardiomyopathy and LV dysfunction, with an ejection fraction of 40%. Acute exacerbation of chronic obstructive pulmonary disease. Possible pneumonia, right middle lobe. Previous history of [id number] tobacco use. Peripheral vascular occlusive disease, with chronic lower extremity pain and weakness. Elevated troponins, being evaluated by cardiology. Plan: Plan dated 03/08/2023. Currently, the patient's getting breathing treatments with albuterol sulfate and ipratropium bromide. The patient continues on ceftriaxone. The patient's also receiving his usual medications, including Lasix, and other cardiac medications, and is currently on Eliquis. We will continue to follow make recommendations along the way. He is currently in sinus rhythm. His mental status is improving. Prognosis is guarded. Plan dated 03/09/2023. The patient is currently on room air. He's not receiving any IV fluids. According to his nurse, the patient is scheduled to have an heart catheterization tomorrow. Labs, x-rays, and medications are reviewed. The patient appears be much more stable, and Angus much more awake and alert. Additional recommendations and suggestions are forthcoming. Prognosis is gu arded. Plan dated 03/10/2023. The patient is seen today in room 375. The patient's on room air. He's not receiving any IV fluids. He appears relatively comfortable. The patient was scheduled to have a cardiac catheterization today. Labs, x-rays, and medications are reviewed. The patient's prognosis is guarded. He denies any respiratory issues at this time. Time with Patient: Less than 30
--- NOTE | 2023-03-10 14:25 | P.PN ---
Subjective Progress Note Date: 03/10/23 Hospital course: Patient is a very pleasant 78-year-old male with a past medical history of peripheral vascular disease, CAD, hypertension, hyperlipidemia, AAA status post repair, and ASD. Patient presented to the emergency department on 03/02/23 from [facility] where patient initially presented with a chief complaint of shortness of breath and dizziness. Patient underwent evaluation there and was found to have atrial fibrillation with RVR at 118 bpm and a troponin of 0.3406 and he was transferred to our facility for further evaluation, admission, and evaluation by wirer passenger car. Upon arrival to our facility repeat troponin was 0.371. Patient was admitted under our services with consultation to cardiology and pulmonology. Influenza A, and for the B, C, and Covid PCR's were negative. Echocardiogram was completed revealing reduced EF of 40% with reported enlarged atria and mitral annular calcification with moderate mitral regurgitation and aortic valve sclerosis with mild aortic insufficiency and small pericardial effusion globally. Repeat X-ray completed 03/08/23 showing right middle lobe infiltrate with platelike atelectasis at left lung base. CT chest without contrast revealed moderate right and small left pleural effusions along with generalized anasarca, borderline cardiomegaly, and pulmonary arterial hypertension consistent with fluid overload/mild CHF, patchy airspace disease and volume loss throughout the basilar right lower lobe concerning for underlying pneumonia, completely atelectatic collapse of right middle lobe, and very large infrarenal AAA measuring 8.1 cm with previous endovascular abdominal aortic graft and multiple hepatic masses measuring up to 6.3 cm suggesting of metastatic disease and enlarged periaortic lymph node at 2.7 cm. Vascular surgery was consulted and order placed for CTA chest/abdomen/pelvis with runoff. CTA completed showing aortoiliac stent graft measuring 8.0 x 6.6 cm at the bifurcation without evidence for endoleak, left infrarernal iliac embolization coils, redemonstration of multiple hepatic masses suggestive of metastatic process, cardiomegaly, small bilateral pleural effusions, and large hiatal hernia. Physical exam: Patient seen and fully evaluated at the bedside. Patient remains alert and oriented to person, place, time, and situation. He was updated about findings of liver mass and consults to both vascular surgery and hematology/oncology. He currently denies having any needs or complaints. Also called and updated judi manzano's daughter regarding findings of liver lesions and concerns for metastatic process. Vital signs reviewed and stable. General: Nontoxic, no distress and appears stated age. Derm: Skin warm and dry, normal coloration for ethnicity. Head: Atraumatic, normocephalic and symmetric. Eyes: EOMs intact, no lid lag, and anicteric sclera Mouth: no lip lesions, mucus membranes moist Cardiovascular: regular rate and rhythm with normal S1S2, systolic murmur, positive posterior tibial pulses bilaterally, and cap refill < 2 seconds. Lungs: Respirations even, regular, and unlabored on room air. Lungs slightly diminished, no rhonchi, rales, wheezes, or crackles noted upon auscultation. Abdominal: soft, nontender to palpation, no guarding, no appreciable organomegaly Ext: ROM intact. No gross muscle atrophy, no edema, no contractures Neuro: Speech clear, face symmetrical and CN II-XII grossly intact with no noted focal neuro deficits Psych: Alert and oriented to person, place, time, and situation. Appropriate and pleasant. Assessment and Plan of Care: Non-ST elevation MD, likely type II Systolic cardiomyopathy with EF of 40%, unclear if ischemic vs nonischemic Pericardial effusion Atrial fibrillation with RVR, now with controlled ventricular rate AAA status post repair, large infrarenal AAA measuring 8.0 x 6.6 cm at the bifurcation without evidence for endoleak History of CAD History of peripheral arterial disease History of ASD -Cardiology following, planning to take patient for cardiac catheterization 03/10/23 -CT chest without contrast revealed moderate right and small left pleural effusions along with generalized anasarca, borderline cardiomegaly, and pulmonary arterial hypertension consistent with fluid overload/mild CHF, patchy airspace disease and volume loss throughout the basilar right lower lobe concerning for underlying pneumonia, completely atelectatic collapse of right middle lobe, and very large infrarenal AAA measuring 8.1 cm with previous endovascular abdominal aortic graft and multiple hepatic masses measuring up to 6.3 cm suggesting of metastatic disease and enlarged periaortic lymph node at 2.7 cm. -Vascular surgery was consulted and order placed for CTA chest/abdomen/pelvis with runoff. -CTA chest/abd/pelvis with runoff completed showing aortoiliac stent graft measuring 8.0 x 6.6 cm at the bifurcation without evidence for endoleak, left internal iliac embolization coils, redemonstration of multiple hepatic masses suggestive of metastatic process, cardiomegaly, small bilateral pleural effusions, and large hiatal hernia. -Patient to continue with cardiac medication regimen with Eliquis 5 mg twice daily, atorvastatin 80 mg nightly, Plavix 75 mg nightly, and losartan 12.5 mg daily. -Continue telemetry monitoring -ProBNP 17,000. Liver lesions -Consult placed to oncology. Bacterial pneumonia, aspiration versus community-acquired Acute encephalopathy, likely delirium. Resolved. Acute Hypoxic respiratory failure, resolved -Pulmonology following and discussed plan of care with hydroelectric component machinist Dr. Lewis. -Continue scheduled duo nebs 4 times a day and as needed for shortness of breath and/or wheezing. -Continue supplemental oxygen as needed to maintain SpO2 equal to or greater than 92%. Patient currently on 3 L O2 via nasal cannula with SpO2 of 95%. -Completed 3 day course of azithromycin and currently on day 5 of 5 of IV antibiotics with Rocephin 2 g daily. -Sputum cultures pending -Speech therapy consulted for swallow eval and appreciate recommendations. Debility -Physical therapy following recommending home with homecare versus subacute rehab Hypokalemia, resolved BPH -Continue Flomax 0.4 mg twice daily. Gout Continue allopurinol 300 mg nightly. Data and imaging reviewed: Vital signs reviewed and stable. Blood pressure 127/81, heart rate 81, respiratory rate 18, temp 97.5F, SpO2 of 93% on room air. CTA completed showing aortoiliac stent graft measuring 8.0 x 6.6 cm at the bifurcation without evidence for endoleak, left internal iliac embolization coils, redemonstration of multiple hepatic masses suggestive of metastatic process, cardiomegaly, small bilateral pleural effusions, and large hiatal hernia. Labs completed and reviewed. CBC showing stable normocytic anemia with hemoglobin of 10.8. BMP showing improvement of renal function with BUN decreasing from 37 down to 27 this morning and creatinine stable at 1.08 with GFR of 64. Liver profile showing slightly elevated AST of 70 and alkaline phosphatase of 178. DVT ppx: Eliquis Code status: Full code Anticipated discharge place: Pending clinical course Anticipated discharge time: Pending clinical course Patient was seen independently by Nurse Pracitioner. This document was prepared using POI dictation software. Please allow for errors in block cuber, while rare they do occur. Glenn Vinh, BINGO CASHIER rendered care for this patient independently, reviewed the findings and plan as documented in the note above. I did not physically speak with or examine the patient on this date. Objective - Vital Signs Vital signs: Vital Signs Temp 97.6 F 03/09/23 21:00 Pulse 71 03/10/23 04:27 Resp 18 03/10/23 04:27 BP 113/73 03/10/23 04:27 Pulse Ox 95 03/10/23 04:27 FiO2 Intake & Output 03/09/23 03/10/23 03/10/23 18:59 06:59 18:59 Intake Total 820 Balance 820 Intake: Oral 820 Other: Voiding Method Toilet Toilet Urinal Urinal # Voids 1 1 # Bowel Movements 1 1 - Labs CBC & Chem 7: 03/10/23 08:19 03/10/23 08:19
--- NOTE | 2023-03-10 14:51 | P.CONS ---
History of Present Illness - Reason for Consult Consult date: 03/10/23 hepatic lesions Requesting physician: Glenn Justice - Chief Complaint new onset a-fib - History of Present Illness Patient is an 78-year-old male who presented to the hospital for new onset atrial fibrillation. Patient is being followed by cardiology who planned for cardiac catheterization today. Upon admission troponins were elevated. BNP elevated at 17,000. Consult was placed due to hepatic lesions noted on CT scan. CTA chest revealed moderate right and small left pleural effusions along with generalized anasarca. Patchy airspace disease and volume loss throughout the basilar right lower lobe. Complete atelectatic collapse of right middle lobe. AAA measuring 8.1 cm. With previous endovascular abdominal aortic graft noted. Incidental finding of multiple hepatic masses measuring up to 6.3 cm. With enlarged left periaortic lymph node at 2.7 cm. CTA abdomen and pelvis redemonstrated multiple hepatic lesions seen throughout the liver largest measuring 6.8 x 5.8 in the right hepatic lobe. At today's visit patient is reporting shortness of breath on exertion. He denies personal history of cancer. Reports approximately 15 pound weight loss over the last 3 months. Last colonoscopy was 10 years ago. Denies bowel changes and dysphagia. Denies history of liver disease. CBC revealed WBC 5.2, hemoglobin 10.8, platelets 176,000. Bilirubin 0.5. AST 70, ALT 34, ALP 178 Review of Systems 10 point ROS is negative except as stated in the HPI Past Medical History Additional Past Medical History / Comment(s): Atrail septal defect, atherosclerosis, CAD, GERD, Gout, PVD, History of Any Multi-Drug Resistant Organisms: None Reported Past Surgical History: Appendectomy, Heart Catheterization With Stent, Hernia Repair, Orthopedic Surgery Additional Past Surgical History / Comment(s): AAA repair, back surgery,L knee replacement, Date of Last Stent Placement:: n/a Past Psychological History: No Psychological Hx Reported Smoking Status: Former smoker Past Alcohol Use History: Occasional Past Drug Use History: None Reported Medications and Allergies Home Medications Medication Instructions Recorded Confirmed Type Clopidogrel [Plavix] 75 mg PO HS 03/02/23 03/02/23 History Dutasteride [Avodart] 0.5 mg PO HS 03/02/23 03/02/23 History Tamsulosin HCl [Flomax] 0.4 mg PO BID 03/02/23 03/02/23 History allopurinoL [Zyloprim] 300 mg PO HS 03/02/23 03/02/23 History Apixaban [Eliquis] 5 mg PO BID #180 tab 03/04/23 Rx Allergies Allergy/AdvReac Type Severity Reaction Status Date / Time aspirin Allergy Rash/Hives Verified 03/02/23 18:02 ibuprofen Allergy Rash/Hives Verified 03/02/23 18:02 Physical Exam Vitals: Vital Signs Temp Pulse Resp BP Pulse Ox 03/10/23 07:45 97.5 F L 81 18 127/81 93 L 03/10/23 04:27 71 18 113/73 95 03/09/23 23:14 96 18 124/74 95 03/09/23 21:00 97.6 F 88 18 114/70 92 L 03/09/23 15:56 98.2 F 61 18 130/87 95 03/09/23 11:42 68 16 131/82 96 Intake and Output 03/09/23 03/10/23 03/10/23 22:59 06:59 14:59 Intake Total 462 Balance 462 Intake: Oral 462 Other: Voiding Method Toilet Toilet Toilet Urinal Urinal Urinal # Voids 1 1 # Bowel Movements 1 1 - Constitutional General appearance: no acute distress - EENT Eyes: anicteric sclerae, EOMI ENT: hearing grossly normal - Respiratory Respiratory: bilateral: wheezing - Cardiovascular Rhythm: regular Heart sounds: normal: S1, S2 - Gastrointestinal General gastrointestinal: no hepatomegaly, soft, no tenderness - Integumentary Integumentary: no cyanotic, no jaundiced - Neurologic grossly intact - Musculoskeletal Musculoskeletal: strength equal bilaterally - Psychiatric Psychiatric: A&O x's 3 Results CBC & Chem 7: 03/10/23 08:19 03/10/23 08:19 Labs: Abnormal Lab Results - Last 24 Hours (Table) 03/10/23 Range/Units 08:19 RBC 3.94 L (4.30-5.90) m/uL Hgb 10.8 L (13.0-17.5) gm/dL Hct 35.3 L (39.0-53.0) % MCHC 30.7 L (31.0-37.0) g/dL RDW 17.0 H (11.5-15.5) % CT scan - abdomen: report reviewed CT scan - chest: report reviewed CT scan - pelvis: report reviewed Assessment and Plan (1) Hepatic lesion Current Visit: Yes Status: Acute Code(s): K76.9 - LIVER DISEASE, UNSPECIFIED SNOMED Code(s): 319019211 (2) New onset a-fib Current Visit: Yes Status: Acute Code(s): I48.91 - UNSPECIFIED ATRIAL FIBRILLATION SNOMED Code(s): 12430876 Plan: Hepatic lesions: -Incidental finding on CTA chest. Presented for new onset atrial fibrillation. Patient is being followed by cardiology who planned for cardiac catheterization today. CTA chest revealed moderate right and small left pleural effusions along with generalized anasarca. Patchy airspace disease and volume loss throughout the basilar right lower lobe. Complete atelectatic collapse of right middle lobe. AAA measuring 8.1 cm. With previous endovascular abdominal aortic graft noted. Incidental finding of multiple hepatic masses measuring up to 6.3 cm. With enlarged left periaortic lymph node at 2.7 cm. CTA abdomen and pelvis redemonstrated multiple hepatic lesions seen throughout the liver largest measuring 6.8 x 5.8 in the right hepatic lobe. He denies personal history of cancer. Reports approximately 15 pound weight loss over the last 3 months. Last colonoscopy was 10 years ago. Denies bowel changes and dysphagia. Denies history of liver disease. CBC revealed WBC 5.2, hemoglobin 10.8, platelets 176,000. Bilirubin 0.5. AST 70, ALT 34, ALP 178 -Above findings were discussed with patient. While discussing findings and need for biopsy, pt became verbally aggressive, stating, "get the hell out." It was reiterated to pt that there is a significant concern for cancer. He again stated that he did not want to discuss it any longer, to get out of his room and that he did not want to have any further workup for the same. If pt would decide to change his mind and want further workup in the future, he can always f/u with our service. Dr baileyests: I have seen and examined pt, performed H&P, developed impression and plan of care. Discussed with dictator. Agree with documentation, dictated as a scribe.
[2023-03-10] MEDS: APIXABAN 5 MG TAB PO SCH (20:09)
[2023-03-10] MEDS: allopurinoL 300 MG TAB PO SCH (20:09)
[2023-03-10] MEDS: ATORVASTATIN 80 MG TAB PO SCH (20:09)
[2023-03-10] MEDS: CLOPIDOGREL 75 MG TAB PO SCH (20:09)
[2023-03-10] MEDS: FINASTERIDE 5 MG TAB PO SCH (20:09)
[2023-03-11] MEDS: SODIUM CHLORIDE 0.9% 1,000 ML in EMPTY BAG 1 BAG IV SCH ×2 (05:12→11:15)
[2023-03-11] MEDS: FUROSEMIDE 40 MG TAB PO SCH (08:44)
[2023-03-11] MEDS: TAMSULOSIN 0.4 MG CAP.ER.24H PO SCH (08:44)
[2023-03-11] MEDS: METOPROLOL TARTRATE 50 MG TAB PO SCH (08:44)
[2023-03-11] MEDS: APIXABAN 5 MG TAB PO SCH (08:44)
[2023-03-11 10:28] VITALS: TEMP 97.5
[2023-03-11] MEDS: LOSARTAN 25 MG TAB PO SCH (11:21)
[2023-03-11 12:08] VITALS: BP 93/74; PULSE 90; RESP 18
--- NOTE | 2023-03-11 13:41 | P.PN ---
Subjective HISTORY OF PRESENT ILLNESS: This is an 78-year-old male with past medical history of atrial septal defect, peripheral vascular disease status post AAA repair, coronary artery disease with stent, tobacco use and dependence. Patient states he quit smoking 1 month ago and has no alcohol intake. We have been asked to evaluate the patient for new onset atrial fibrillation. Patient states that he initially went to his PCP for weakness and weight loss he was then sent to the local hospital for evaluation and transfer to [facility] for A. fib new onset. Patient is status post adenosine and subsequently Cardizem drip and heparin drip. Patient is seen today in the emergency center waiting for a bed on the cardiac stepdown unit. Patient also states that he has shortness of breath with minimal activity and a chronic coug h. He has lower extremity edema. No chest pain. EKG atrial fibrillation with PVCs Echocardiogram reveals EF of 40%. Moderate mitral regurgitation. Aortic valve sclerosis with mild aortic insufficiency. WBC 6, hemoglobin 11.3, platelet count 150. Sodium 139, potassium 3.5, BUN 24 and creatinine 0.9. Troponin 0.371 and 0.366. Home cardiac medications: Plavix 75 mg daily, Avodart 0.5 mg at bedtime. 03/04 Seen today on the cardiac stepdown unit. Telemetry is atrial fibrillation running around 107 bpm. Patient remains on Cardizem drip at 2.5 mg per hour and was started on Lopressor 50 mg twice daily yesterday. He is also maintained on heparin drip. Heart rate is in the 60s to 80s, blood pressure 134/88, pulse ox 98% on 2 L nasal cannula. Repeat blood work reveals hemoglobin 10.6, platelet count 145. BUN 25 creatinine 1.06. Potassium 3.9. 03/05 Telemetry is atrial fibrillation running between 76 and 110. Patient is currently maintained on Lopressor 75 mg twice daily and Cardizem drip was discontinued yesterday afternoon. Losartan was also added yesterday for blood pressure control. 03/07/2023 Patient is a pleasant 78-year-old male with multiple comorbid conditions who presented to the hospital with primary weakness. Patient was in A. fib with RVR, and started on adenosine and Cardizem drip. Oral beta blockers were started and the patient was weaned off his Cardizem drip, his atrial fibrillation has been brought under control and the patient is currently in A. fib with controlled response. Patient demonstrated mildly elevated troponins which are likely secondary to demand ischemia, however it's unsure if the patient actually has blockages or not. Patient had a run of ventricular tachycardia 2 nights ago, which gives us further indication that there could be possible blockage. Patient was asymptomatic during the run of ventricular tachycardia. Today we note the patient has had no further runs of V. tach overnight. Patient remains somewhat short of breath while at rest. He otherwise denies chest pain, heart palpitations, nausea, dizziness, and syncopal episodes. 03/08/2023 Issue examined this morning at the bedside. Patient is confused at the time of examination. He currently denies chest pain or pressure. He denies shortness of breath. Telemetry reveals atrial fibrillation with a heart rate in the 50s and frequent PVCs. 03/09/2023 Patient examined this morning at the bedside. Patient remains confused although appears improved from yesterday. He denies chest pain or pressure. He denies shortness of breath. Vital signs are stable. Telemetry reveals atrial fibrillation with controlled ventricular rate 03/10/2023 Patient examined this morning to bedside. Patient denies chest pain or pressure. He denies shortness of breath. Patient underwent CT revealing aortobiiliac graft present with excluded lumen measuring 8.0 x 6.6 cm at the bifurcation. No evidence for endoleak. Patient was also found to have multiple hepatic lesions with the largest measuring 6.8 x 5.8 in the right hepatic lobe. 03/11/2023 Patient examined this morning at the bedside. Patient denies chest pain or pres sure. He denies shortness of breath. Patient's vital signs are stable. PHYSICAL EXAM: VITAL SIGNS: Reviewed. GENERAL: Well-developed in no acute distress. NECK: Supple. No JVD or thyromegaly LUNGS: Respirations even and unlabored. Lungs essentially clear to auscultation bilaterally. HEART: Irregular rate and rhythm. S1 and S2 heard. EXTREMITIES: Normal range of motion. No clubbing or cyanosis. Peripheral pulses intact. No lower extremity edema ASSESSMENT: New-onset paroxysmal atrial fibrillation with RVR, currently rate controlled Nonsustained ventricular tachycardia New-onset cardiomyopathy, EF 40%, ischemic versus nonischemic Acute heart failure with reduced EF Possible bibasilar pneumonia Altered mental status Hypertension Former nicotine dependence, patient quit smoking 1 month ago Multiple hepatic lesions Abdominal aortic aneurysm status post stenting with no evidence of endoleak PLAN: Continue current cardiac medications Patient has been seen by vascular surgery with no indications for intervention at this time Patient has been seen by oncology and apparently does not want to have further workup regarding his hepatic lesions Due to multiple and complex comorbidities including multiple hepatic lesions concerning for metastasis we will defer performing any cardiac catheterization during this hospitalization No further inpatient recommendations from a cardiac standpoint We will sign off. Please reconsult if needed. Nurse practitioner note has been reviewed by physician. Signing provider agrees with the documented findings, assessment, and plan of care. Objective - Vital Signs Vital signs: Vital Signs Temp 97.5 F L 03/11/23 08:00 Pulse 90 03/11/23 11:52 Resp 18 03/11/23 11:52 BP 93/74 03/11/23 11:52 Pulse Ox 93 L 03/11/23 11:52 FiO2 Intake & Output 03/10/23 03/11/23 03/11/23 18:59 06:59 18:59 Intake Total 720 420 Output Total 400 Balance 720 -400 420 Intake: Oral 720 420 Output: Urine 400 Other: Voiding Method Toilet Toilet Toilet Urinal Urinal Urinal # Voids 2 3 2 - Labs CBC & Chem 7: 03/10/23 08:19 03/10/23 08:19
--- NOTE | 2023-03-11 13:48 | P.PN ---
Subjective Progress Note Date: 03/11/23 Principal diagnosis: Atrial fibrillation with RVR. This is an 78-year-old white male with history of multiple medical problems including coronary artery disease, COPD, peripheral vessel occlusive disease, hiatal hernia, abdominal aortic aneurysm requiring repair, back surgery and knee replacement, [id number] smoking history, patient presented to the ER on 03/02/2023, mostly his presentation was presentation of atrial fibrillation with RVR. Apparently the patient was seen by his primary care physician that day, and EKG was abnormal. Hence he was sent to ER. His initial presentation to the primary care was mostly a presentation of weakness, fatigue, pain in his lower extremities, and cannot stand on his feet. Patient had no symptoms of shortness of breath or chest pain at this time. Upon evaluation in the ER, patient was found to have atrial fibrillation with RVR, chest x-ray questioned a right lower lobe pneumonia, although the patient had no symptoms to suggest pneumonia had no fever, no chills, he does have occasional chronic cough. No hemoptysis and no chest pain. Cardiology was consulted on this patient, and he was treated with Cardizem drip Lopressor, and heparin. Again his initial chest x-ray showed a right lower lobe consolidation with air bronchogram, and follow-up chest x-ray showed bibasilar opacities with minimal improvement of the right lung consolidation. Clinically, the patient had no symptoms to suggest pneumonia. Patient had no leukocytosis, no fever no chills, no hemoptysis, and his pro- calcitonin level is pending considering the abnormal chest x-ray findings this consult was initiated patient is receiving ceftriaxone empirically, he is also on bronchodilators for underlying COPD patient is receiving also diuretics intermittently. Echocardiogram showed moderate LV dysfunction with ejection fraction in the 40% range patient also noted to have mild aortic insufficiency and aortic sclerosis Progress note dated 03/08/2023. 78-year-old male seen yesterday in consultation. He has a history of multiple medical problems including coronary disease, COPD, peripheral vascular occlusive disease, hiatal hernia, abdominal aortic aneurysm, back surgery, knee replacement, [id number] history of tobacco use, among other things. He presented to the emergency department on March 02, with atrial fibrillation with RVR. The patient also had mental status changes. Currently, the patient is seen in room 375. He is on 3 L of oxygen. His pro-calcitonin level was 0.29. He is currently in normal sinus rhythm. Currently labs include a white count of 5.2, hemoglobin 10.7, hematocrit 34.9, and a platelet count of 157,000. Sodium 141, potassium 4, chlorides 110, CO2 24, BUN 37, creatinine 1.14. Chest x-ray suggests a right middle lobe pneumonia. There is some atelectasis at the left lung base. The patient is currently on ceftriaxone. Progress note dated 03/09/2023. 78-year-old male seen in consultation 2 days ago. He's seen again today in room 375. The patient is currently on room air. Saturations 96%. The patient is not receiving any IV fluids. According to his nurse, he is scheduled for heart catheterization tomorrow. No new laboratory data from today. Labs from yesterday, have been reviewed. Please see the note above. Progress note dated 03/10/2023. 78-year-old male, seen today in room 375. Patient continues on room air, and, it is not receiving any IV fluids. The patient was scheduled to have cardiac catheterization today. Currently, the patient appears to be doing better. White count 5.2, hemoglobin 10.8, hematocrit 35.3, with a normal platelet count. Sodium 141, potassium 3.5, chlorides 106, CO2 28, BUN 27, creatinine 1.08. ALT is 70. Albumin is 2.4. Previous pro-calcitonin level from March 07 was 0.29. Progress note dated 03/11/2023. 78-year-old male seen in room 375. The patient was to have a cardiac catheterization, but it was canceled, because a computed tomography scan of the abdomen revealed multiple liver lesions, consistent with metastatic disease. Currently, the patient's on room air, he's not receiving any IV fluids. He does not appear to be having any respiratory distress or difficulty. No new labs today. The labs from March 10, have been reviewed. The computed tomography scan of the abdomen and pelvis has also been reviewed. Objective - Vital Signs Vital signs: Vital Signs Temp 97.5 F L 03/11/23 08:00 Pulse 90 03/11/23 11:52 Resp 18 03/11/23 11:52 BP 93/74 03/11/23 11:52 Pulse Ox 93 L 03/11/23 11:52 FiO2 Intake & Output 03/10/23 03/11/23 03/11/23 18:59 06:59 18:59 Intake Total 720 420 Output Total 400 Balance 720 -400 420 Intake: Oral 720 420 Output: Urine 400 Other: Voiding Method Toilet Toilet Toilet Urinal Urinal Urinal # Voids 2 3 2 - Exam No acute distress, oriented 3. No respiratory distress. Currently on room air. HEENT examination is grossly unremarkable. Mucous membranes are moist. No oral lesions. Neck supple. Full range of motion. No adenopathy thyromegaly or neck vein distention. Cardiovascular examination reveals regular rhythm rate. S1-S2 normal. No S3 or S4. A 2/6 systolic murmur is noted. Heart rate 90 bpm. Lungs reveal scattered rhonchi and crackles. There are mild to moderate in severity. Breath sounds are equal bilaterally. Saturations are 94 % on room air. Abdomen soft bowel sounds are heard. No masses or tenderness. Extremities are intact. No cyanosis clubbing or edema. Skin is without rash or lesion. Neurologic examination is brief but nonfocal. - Labs CBC & Chem 7: 03/10/23 08:19 03/10/23 08:19 Assessment and Plan Assessment: Acute hypoxemic respiratory failure, multifactorial, secondary to COPD exacerbation, atrial fibrillation/RVR, and pneumonia. New onset atrial fibrillation with RVR. Anticipated heart catheterization, 03/10/2023. Cardiomyopathy and LV dysfunction, with an ejection fraction of 40%. Acute exacerbation of chronic obstructive pulmonary disease. Multiple liver lesions, on computed tomography scan of the abdomen. Possible pneumonia, right middle lobe. Previous history of [id number] tobacco use. Peripheral vascular occlusive disease, with chronic lower extremity pain and weakness. Elevated troponins, being evaluated by cardiology. Plan: Plan dated 03/08/2023. Currently, the patient's getting breathing treatments with albuterol sulfate and ipratropium bromide. The patient continues on ceftriaxone. The patient's also receiving his usual medications, including Lasix, and other cardiac medications, and is currently on Eliquis. We will continue to follow make recommendations along the way. He is currently in sinus rhythm. His mental status is improving. Prognosis is guarded. Plan dated 03/09/2023. The patient is currently on room air. He's not receiving any IV fluids. According to his nurse, the patient is scheduled to have an heart catheterization tomorrow. Labs, x-rays, and medications are reviewed. The patient appears be much more stable, and Angus much more awake and alert. Additional recommendations and suggestions are forthcoming. Prognosis is guarded. Plan dated 03/10/2023. The patient is seen today in room 375. The patient's on room air. He's not receiving any IV fluids. He appears relatively comfortable. The patient was scheduled to have a cardiac catheterization today. Labs, x-rays, and medications are reviewed. The patient's prognosis is guarded. He denies any respiratory issues at this time. Plan dated 03/11/2023. The patient had a computed tomography scan of the abdomen and pelvis, which showed multiple liver lesions, consistent with possible metastatic disease. For that reason, cardiac catheterization has been canceled. The patient remains on no IV fluids, and not receiving any supplemental oxygen. Labs, x-rays, and medications are reviewed. The patient's overall prognosis remains guarded. His respiratory status at this time is very stable. Prognosis is very guarded. Time with Patient: Less than 30
--- NOTE | 2023-03-11 14:04 | P.DS ---
Providers Date of admission: 03/02/23 17:54 Expected date of discharge: 03/11/23 Attending physician: Esvin Dickens MD Consults: 03/06/23 13:14 Consult Physician Routine Consulting Provider: Gris Larson Consult Reason/Comments: pneum, sob Do you want consulting provider notified?: Yes 03/09/23 19:28 Consult Physician Routine Consulting Provider: Nayeli Shepherd Consult Reason/Comments: AAA, s/p repair 8.1 cm with heterogenous mass Do you want consulting provider notified?: Yes 03/10/23 07:38 Consult Physician Routine Consulting Provider: Bry Fung Consult Reason/Comments: multiple hepatic lesions concerning for metastasis Do you want consulting provider notified?: Yes Primary care physician: Jose G Courtney [facility] Course: Discharge Diagnosis: New onset atrial fibrillation with rapid ventricular response, improved Nonesustained v-tach 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%, undetermined etiology Pericardial effusion Acute exacerbation of systolic CHF Abdominal aortic aneurysm status post stenting without evidence of endoleak Coronary artery disease Peripheral arterial disease HTN Multiple liver lesions, probable metastatic disease Bacterial pneumonia, community-acquired Acute exacerbation of COPD Acute encephalopathy, resolved Acute hypoxic respiratory failure, resolved Generalized weakness debility due to above BPH Gout Hospital Course: Patient is an 78-year-old male with peripheral vascular disease, coronary artery disease, hypertension, dyslipidemia, and abdominal aortic aneurysm status post grafting who was transferred to the emergency department from [facility] due to shortness of breath and dizziness. While at the outside facility patient was found to have A-fib with rapid ventricular response at 118 bpm and a mildly elevated troponin at 0.3406. Patient was subsequently admitted with consultation to cardiology. Initially he was requiring a Cardizem drip which was subsequently transitioned to metoprolol. He also had initially been on a heparin drip which was transitioned to Eliquis. Echocardiogram was performed which showed an ejection fraction of 40% with enlarged atria, moderate mitral regurgitation, and a small pericardial effusion. He was then started on ARB. Chest x-ray demonstrated right middle lobe infiltrate with platelike atelectasis. Patient was seen by pulmonary aand he completed a course of IV antibiotcs. His CXR was followed up by a CT of the chest which showed moderate right and left pleural effusions, generalized anasarca, cardiomegaly, pulmonary atrial hypertension, patchy airspace disease, 8.1 cm infrarenal aortic aneurysm, and multiple hepatic metastasis largest being 6.3 cm. Close surgery consult was subsequently placed. They recommended a CTA chest, abdomen, and pelvis which showed an aortoiliac stent graft without evidence of Endoleak, left internal iliac embolization coils, redemonstration of multiple hepatic masses suggestive of metastatic disease, and cardiomegaly. Vascular surgery did not recommend any intervention. She only cardiology was considering cardiac cath but given his high risk and possible metastatic disease they felt this was best referred to the outpatient setting. He was also seen by oncology, he did not want to discuss his liver lesion while he is in the hospital. He was cleared by pulm and cardio and determined stable for discharge. Follow-up: in 2 weeks, Dr. Fung in 2 weeks, Please follow with your vascular surgeon. New medications include metoprolol, Eliquis, losartan, Lasix, and potassium Patient seen and examined at bedside. He is complaining of being tired. He wants to go home. He does not want to talk about his current conditions. He denies any chest pain, shortness of breath, nausea, vomiting. Vital signs reviewed and stable. General: Nontoxic, no distress, appears at stated age Cardiovascular: S1S2 reg, no murmur, positive posterior tibial pulse bilateral, Lungs: CTA bilateral, no rhonchi, no rales, no accessory muscle use Abdominal: Soft, nontender to palpation, no guarding, no appreciable organomegaly Ext: No gross muscle atrophy, no edema b/l lower extremities, no contractures Psych: Alert, oriented, appropriate affect A total of 45 minutes of time were spent preparing this complex discharge summary. Patient was discharged on 03/11/2023. This dictation was prepared using [employer] voice recognition software. Though every attempt is made to correct errors during dictation some may still exist. Patient Condition at Discharge: Fair Plan - Discharge Summary New Discharge Prescriptions: New Potassium Chloride ER [K-Dur 10] 10 meq PO DAILY #30 tab Apixaban [Eliquis] 5 mg PO BID #180 tab Losartan [Cozaar] 12.5 mg PO 1200 #30 tab Furosemide [Lasix] 40 mg PO DAILY #30 tab Atorvastatin [Lipitor] 80 mg PO HS #30 tab Metoprolol Tartrate [Lopressor] 100 mg PO BID #60 tablet Continue Clopidogrel [Plavix] 75 mg PO HS allopurinoL [Zyloprim] 300 mg PO HS Tamsulosin HCl [Flomax] 0.4 mg PO BID Dutasteride [Avodart] 0.5 mg PO HS Discharge Medication List Clopidogrel [Plavix] 75 mg PO HS 03/02/23 [History] Dutasteride [Avodart] 0.5 mg PO HS 03/02/23 [History] Tamsulosin HCl [Flomax] 0.4 mg PO BID 03/02/23 [History] allopurinoL [Zyloprim] 300 mg PO HS 03/02/23 [History] Apixaban [Eliquis] 5 mg PO BID #180 tab 03/04/23 [Rx] Atorvastatin [Lipitor] 80 mg PO HS #30 tab 03/11/23 [Rx] Furosemide [Lasix] 40 mg PO DAILY #30 tab 03/11/23 [Rx] Losartan [Cozaar] 12.5 mg PO 1200 #30 tab 03/11/23 [Rx] Metoprolol Tartrate [Lopressor] 100 mg PO BID #60 tablet 03/11/23 [Rx] Potassium Chloride ER [K-Dur 10] 10 meq PO DAILY #30 tab 03/11/23 [Rx] Follow up Appointment(s)/Referral(s): [facility], [NON-STAFF] - Jose G Courtney MD [Primary Care Provider] - 1-2 days Moo Hoover MD [STAFF PHYSICIAN] - 2 Weeks Bry Fung [STAFF PHYSICIAN] - 2 Weeks Patient Instructions/Handouts: Heart Failure (DC) Activity/Diet/Wound Care/Special Instructions: Activity: As tolerated Diet: Heart Healthy 2 gram sodium diet, 2L fluid restriction Special Instructions: When you see your family doctor please have repeat blood work to recheck your potassium given your new medications Weight yourself daily. Contact Dr. Hoover's office should you gain more than 3 pounds in 1 day or 5 pounds in 3 days Check blood pressures daily Please ensure follow-up with oncology we suggest that you see your vascular surgeon for a recheck due to the size of your aortic aneurysm. There is no sign of leak and graft appears in good position. Discharge Disposition: HOME WITH HOME HEALTH SERVICES
--- NOTE | 2023-03-11 14:12 | P.PN ---
Progress Note - Text Progress Note Date: 03/11/23 Spoke to patient's daughter on the telephone today. She states patient would like time to process scan results and to follow-up with PCP in the next couple weeks and get referral for an oncologist closer to home. Will fax CT reports to patient's primary care physician. Internal medicine team updated
== END 2023-03-11 15:26 | disposition home health service (06) | DRG 280 ==
LOC: EC 16:35 → 3SCARD 17:54
PROVIDERS: ADMIT Student in an Organized Health Care Education/Training Program; ATTEND Student in an Organized Health Care Education/Training Program
DX: I48.91 Unspecified atrial fibrillation (principal); I21.A1 Myocardial infarction type 2; I50.23 Acute on chronic systolic (congestive) heart failure; J15.9 Unspecified bacterial pneumonia; J96.01 Acute respiratory failure with hypoxia; J69.0 Pneumonitis due to inhalation of food and vomit; C78.7 Secondary malignant neoplasm of liver and intrahepatic bile duct; I31.39 Other pericardial effusion (noninflammatory); J44.0 Chronic obstructive pulmonary disease with (acute) lower respiratory infection; J44.1 Chronic obstructive pulmonary disease with (acute) exacerbation; J98.11 Atelectasis; G93.40 Encephalopathy, unspecified; Q21.10 Atrial septal defect, unspecified; E87.6 Hypokalemia; I08.0 Rheumatic disorders of both mitral and aortic valves; I11.0 Hypertensive heart disease with heart failure; I71.43 Infrarenal abdominal aortic aneurysm, without rupture; I70.0 Atherosclerosis of aorta; I73.9 Peripheral vascular disease, unspecified; E78.5 Hyperlipidemia, unspecified; K44.9 Diaphragmatic hernia without obstruction or gangrene; I25.10 Atherosclerotic heart disease of native coronary artery without angina pectoris; Z96.652 Presence of left artificial knee joint; I42.8 Other cardiomyopathies; I47.20 Ventricular tachycardia, unspecified; I48.0 Paroxysmal atrial fibrillation; I49.3 Ventricular premature depolarization; K21.9 Gastro-esophageal reflux disease without esophagitis; M10.9 Gout, unspecified; N40.1 Benign prostatic hyperplasia with lower urinary tract symptoms; R33.8 Other retention of urine; Z79.01 Long term (current) use of anticoagulants; Z79.02 Long term (current) use of antithrombotics/antiplatelets; Z79.899 Other long term (current) drug therapy; Z86.79 Personal history of other diseases of the circulatory system; Z87.891 Personal history of nicotine dependence; Z95.5 Presence of coronary angioplasty implant and graft
CPT/HCPCS: 36415; 36600; 71045; 71046; 71250; 74174; 80048; 80053; 80061; 82805; 83605; 83735; 83880; 84145; 84443; 84484; 85025; 85027; 85730; 87449; 87636; 93005; 93306; 96365; 96366; 96368; 99285